=== PATIENT | female | born 1980 | race Caucasian/White ===

== ENCOUNTER 2023-03-16 10:19 | Outpatient (OUT) | payer MEDICAID, SELFPAY ==
[2023-03-16 11:03] LABS: Basophils Absolute Auto 0.1 10^3/uL (0.0-0.1); Basophils Percent Auto 0.7 % (0.2-2.0); Eosinophils Absolute Auto 0.4 10^3/uL (0.0-0.7); Eosinophils Percent Auto 2.9 % (0.9-7.0); Hematocrit 41.9 % (36.0-48.0); Hemoglobin 14.2 g/dL (12.0-16.0); Immature Granulocytes Abs Auto 0.05 10^3/uL (0.00-0.03); Immature Granulocytes Pct Auto 0.4 % (0.0-0.5); Lymphocytes Absolute Auto 2.4 10^3/uL (1.2-3.8); Lymphocytes Percent Auto 17.5 % (20.5-60.0); Mean Corpuscular HGB Conc 33.9 g/dL (29.9-35.2); Mean Corpuscular Hemoglobin 31.9 pg (26.7-34.0); Mean Corpuscular Volume 94.2 fL (81.0-99.0); Mean Platelet Volume 11.1 fL (9.5-13.5); Monocytes Absolute Auto 1.1 10^3/uL (0.3-0.8); Monocytes Percent Auto 7.9 % (1.7-12.0); Neutrophils Absolute Auto 9.6 10^3/uL (1.4-6.5); Neutrophils Percent Auto 70.6 % (43.0-75.0); Platelet Count 248 10^3/uL (150-450); Red Blood Count 4.45 10^6/uL (4.20-5.40); Red Cell Distribution Width 12.4 % (11.0-15.0); White Blood Count 13.6 10^3/uL (4.0-11.0)
[2023-03-16 11:26] LABS: Estimated Average Glucose 85 mg/dL; Glycohemoglobin A1C 4.6 % (4.5-6.2)
[2023-03-16 11:34] LABS: Alanine Aminotransferase 22 U/L (14-59); Albumin Level 3.5 g/dL (3.4-5.0); Alkaline Phosphatase 54 U/L (46-116); Anion Gap 12.2; Aspartate Amino Transferase 14 U/L (15-37); BUN Creatinine Ratio 14.8; Bilirubin Total 0.6 mg/dL (0.2-1.0); Calcium 8.8 mg/dL (8.5-10.1); Chloride 102 mmol/L (98-107); Chol HDL Ratio 2.4; Cholesterol 233 mg/dL (<=200); Estimated GFR (African America >60 (>=60); Estimated GFR (Non-African Ame >60 (>=60); Free T3 2.51 pg/mL (2.18-3.98); Globulin 3.5 g/dL; Glucose 83 mg/dL (74-106); HDL Cholesterol 97 mg/dL (40-60); Potassium 4.2 mmol/L (3.5-5.1); Sodium 138 mmol/L (136-145); Thyroid Stimulating Hormone 0.664 uIU/mL (0.358-3.740); Triglycerides 31 mg/dL (<=150); VLDL CHOLESTEROL 6.2 mg/dL
[2023-03-16 11:51] LABS: Free T4 1.04 ng/dL (0.76-1.46)
--- OUTSIDE RECORDS SUMMARY | 2023-04-26 13:45 | XMS_ITS | CCD ---
Author Name Unknown Address [address] [place] [address] Organization [facility] Care Team Providers Care Technology And Engineering Teacher Name Role Phone DR ASTRID LARSON Primary Care Unavailable ARTHUR PEREZ Attending Unavailable ARTHUR PEREZ Consulting Unavailable ARTHUR PEREZ Admitting Unavailable MARSHA, DR RESENDIZ Attending Unavailable MARSHA, DR RESENDIZ Consulting Unavailable DR ASTRID LARSON Primary Care Unavailable DR ASTRID LARSON Admitting Unavailable MARSHA, DR RESENDIZ Attending Unavailable MARSHA, DR RESENDIZ Consulting Unavailable DR ASTRID LARSON Primary Care Unavailable MARSHA, DR RESENDIZ Admitting Unavailable DR FRANCISCO JAVIER PATRICK Consulting Unavailable Problems Active Problems Problem Classification Problem Date Documented Date Episodic/Chronic Disorders of lipid metabolism (4 sources) Hyperlipidemia, unspecified; Translations: [HYPERLIPIDEMIA UNSPECIFIED] Onset: 01-06-2022 Chronic Immunizations and screening for infectious disease (2 sources) Encounter for screening for infections with a predominantly sexual mode of transmission; Translations: [Encounter for screening for human papillomavirus (HPV)] Onset: 06-17-2022 Episodic Nutritional deficiencies (1 source) Vitamin D deficiency, unspecified; Translations: [VITAMIN D DEFICIENCY UNSPECIFIED] Onset: 01-07-2022 Chronic Other female genital disorders (1 source) Other specified noninflammatory disorders of vagina; Translations: [OTH SPEC NONINFLAMMATORY D/O VAGINA] Onset: 06-17-2022 Episodic Other screening for suspected conditions (not mental disorders or infectious disease) (4 sources) Encounter for screening for malignant neoplasm of cervix; Translations: [ENC SCREENING MALIG NEOPLASM CERV] Onset: 06-16-2022 Episodic Past or Other Problems Problem Classification Problem Date Documented Da te Episodic/Chronic Diabetes mellitus without complication (1 source) Hyperglycemia, unspecified; Translations: [HYPERGLYCEMIA UNSPECIFIED] Onset: 01-07-2022 Episodic Spondylosis; intervertebral disc disorders; other back problems (4 sources) Radiculopathy, lumbar region; Translations: [RADICULOPATHY LUMBAR REGION] Onset: 10-28-2021 Episodic Results Test Name Value Interpretation Reference Range Facil ity PAP ACOG PANEL 2: 30 to 65on 06-23-2022 . . Normal [facility]ital Comment on above: Result Comment: Perf ormed at: WB Performed By: #### [id number] #### [facility] [address] [address] [address] Jaki Myers Age Gdln ACOG Testing 30-65 Normal [facility] Comment on above: Performed By: #### 4 [id number] #### [facility] [address] [address] [address] Jaki Myers DIAGNOSIS: Comment Normal [facility] ostal Comment on above: Result Comment: NEGA TIVE FOR INTRAEPITHELIAL LESION OR MALIGNANCY. Performed at: WB Performed By: #### 4 [id number] #### [facility] [address] [address] [address] Jaki Myers HPV Aptima Negative Normal Negative [facility] ostal Comment on above: Result Comment: This nucleic acid amplification test detects fourteen high-risk HPV types (16,18,31,33,35,39,45,51,52,56,58,59,66,68) without differentiation. Performed at: =G Performed By: #### 4 [id number] #### [facility] [address] [address] [address] Jaki Myers HPV Genotype Reflex Comment Normal [facility] Comment on above: Result Comment: Crit eria not met, HPV Genotype not performed. Performed at: WB Performed By: #### 4 [id number] #### [facility] [address] [address] [address] Jaki Myers Methodology: Comment Normal [facility] Comment on above: Result Comment: This liquid based ThinPrep(R) pap test was screened with the use of an image guided system. Performed at: WB Performed By: #### 4 [id number] #### [facility] [address] [address] [address] Jaki Myers Note: Comment Normal [facility] Comment on above: Result Comment: The Pap smear is a screening test designed to aid in the detection of premalignant and malignant conditions of the uterine cervix. It is not a diagnostic procedure and should not be used as the sole means of detecting cervical cancer. Both false-positive and false-negative reports do occur. . Performed at: WB Performed By: #### 4 [id number] #### [facility] [address] [place] [address] Dr. Jaki Myers Performed by: Comment Normal [facility] [place] Comment on above: Result Comment: Kalee Pires, Open H[employer] Furnace Operator Helper (ASCP) Performed at: WB Performed By: #### 4 [id number] #### [facility] [address] [place] [address] Dr. Jaki Myers Specimen adequacy: Comment Normal [facility] Comment on above: Result Comment: Sati sfactory for evaluation. Endocervical and/or squamous metaplastic cells (endocervical component) are present. Performed at: WB Performed By: #### 4 [id number] #### [facility] [address] [place] [address] Dr. Jaki Myers CHLAMYDIA/GONOCOCCUS CASE (SW AB/URINE/PAPon 06-19-2022 Chlamydia trachomatis, CASE Negative Normal Negative [facility] Comment on above: Performed By: #### C T/NGNA #### [facility] [address] [place] [address] Dr. Jaki Myers Neisseria gonorrhoeae, CASE Negative Normal Negative [facility] Comment on above: Performed By: #### C T/NGNA #### [facility] [address] [place] [address] Dr. Jaki Myers VAGINITIS/VAGINOSIS DNA PROB Suhas 06-18-2022 Raisa species Negative Normal Negative [facility] Comment on above: Performed By: #### V AGINT #### [facility] [address] [place] [address] Dr. Jaki Myers Gardnerella vaginalis Positive Abnormal Negative [facility] Comment on above: Performed By: #### V AGINT #### [facility] [address] [place] [address] Dr. Jaki Myers Trichomonas vaginalis Negative Normal Negative [facility] Comment on above: Performed By: #### V AGINT #### [facility] [address] [address] [address] Jaki Myers T4 LABCORPon 01-07-2022 T4 [Mass/Vol] 7.6 ug/dL Normal 4.5-12.0 [facility] [place] Comment on above: Performed By: #### T 4LC #### [facility] [address] [address] [address] Jaki Myers VIT D 25-[place] LABCORPon 2021 Vitamin D, 25-Hydroxy 20.0 ng/mL Critically low 30.0-100.0 [facility] Comment on above: Result Comment: Martina min D deficiency has been defined by the [place] of Medicine and an Endocrine Society practice guideline as a level of serum 25-OH vitamin D less than 20 ng/mL (1,2). The Endocrine Society went on to further define vitamin D insufficiency as a level between 21 and 29 ng/mL (2). 1. IOM ([place] of Medicine). 2010. Dietary reference intakes for calcium and D. [place]: The National Academies Press. 2. Noreen MF, Bobby NC, Nael ESPINOZA, et al. Evaluation, treatment, and prevention of vitamin D deficiency: an Endocrine Society clinical practice guideline. JCEM. 2010; 96(7):1911-30. Performed By: #### V ITADLC #### [facility] [address] [address] [address] Jaki Myers CBC AUTO DIFFon 01-06-2022 BASO # 0.1 103/ul Normal 0.0-0.1 [facility] Comment on above: Performed By: #### C BC ####[facility] [address] [id number]. Jaki Myers Basophils/100 WBC (Bld) 0.9 % Normal 0.2-2.0 [facility] [place] Comment on above: Performed By: #### C BC ####[facility] [address] [id number]. Jaki Myers EO # 0.4 103/ul Normal 0.0-0.7 [facility] Comment on above: Performed By: #### C BC ####[facility] [address] [address]Dr. Jaki Myers Eosinophils/100 WBC (Bld) 4.3 % Normal 0.9-7.0 [facility] Comment on above: Performed By: #### C BC ####[facility] [address] [place], [place] [address]Dr. Jaki Myers Erythrocyte distribution wid th (RBC) [Ratio] 12.9 % Normal 11.0-15.0 [facility] Comment on above: Performed By: #### C BC ####[facility] [address] [place], [place] [address]Dr. Jaki Myers Hematocrit (Bld) [Volume fraction] 42.4 % Normal 3 6.0-48.0 [facility] Comment on above: Performed By: #### C BC ####[facility] [address] [place], [place] [address]Dr. Jaki Myers Hemoglobin (Bld) [Mass/Vol] 14.1 g/dL Normal 12.0-16. 0 [facility] Comment on above: Performed By: #### C BC ####[facility] [address] [place], [place] [address]Dr. Jaki Myers IG # 0.03 10e3/ul Normal 0.00-0.03 [facility] Comment on above: Performed By: #### C BC ####[facility] [address] [place], [place] [address]Dr. Jaki Myers IG % 0.4 % Normal 0.0-0.5 [facility] Comment on above: Performed By: #### C BC ####[facility] [address] [place], [place] [address]Dr. Jaki Myers LYMPH # 2.4 103/ul Normal 1.2-3.8 [facility] Comment on above: Performed By: #### C BC ####[facility] [address] [id number]. Jaki Louis Lymphocytes/100 WBC (Bld) 28.8 % Normal 20.5-60.0 [facility] Comment on above: Performed By: #### C BC ####[facility] [address] [id number]. Jaki Louis MANUAL DIFF REQ NO Normal [facility] Comment on above: Performed By: #### C BC ####[facility] [address] [address]Dr. Lizbethiker Myers MCH (RBC) [Entitic mass] 31.9 pg Normal 26.7-34.0 [facility] Comment on above: Performed By: #### C BC ####[facility] [address] [address]Dr. Jaki Louis MCHC (RBC) [Mass/Vol] 33.3 g/dL Normal 29.9-35.2 [facility] Comment on above: Performed By: #### C BC ####[facility] [address] [address]Dr. Lizbethiker Myers MCV (RBC) [Entitic vol] 95.9 fL Normal 81.0-99.0 [facility] [place] Comment on above: Performed By: #### C BC ####[facility] [address] [id number]. Jaki Myers MONO # 0.9 103/ul Critically high 0.3-0.8 [facility] Comment on above: Performed By: #### C BC ####[facility] [address] [id number]. Jaki Myers Monocytes/100 WBC (Bld) 10.4 % Normal 1.7-12.0 [facility] [place] Comment on above: Performed By: #### C BC ####[facility] [address] [address]Dr. Jaki Myesr NEUT # 4.7 103/ul Normal 1.4-6.5 [facility] ostal Comment on above: Performed By: #### C BC ####[facility] [address] [id number]. Jaki Myers Neutrophils/100 WBC (Bld) 55.2 % Normal 43.0-75.0 [facility] Comment on above: Performed By: #### C BC ####[facility] [address] [id number]. Jaki Myers Platelet mean volume (Bld) [ Entitic vol] 10.7 fL Normal 9.5-13.5 The [facility] pital Comment on above: Performed By: #### C BC ####[facility] [address] [id number]. Jaki Myers PLT 257 103/ul Normal 150-450 [facility] Comment on above: Performed By: #### C BC ####[facility] [address] [id number]. Jaki Myers RBC 4.42 106/ul Normal 4.20-5.40 [facility] Comment on above: Performed By: #### C BC ####[facility] [address] [id number]. Jaki Myers WBC 8.5 103/ul Normal 4.0-11.[address] [facility] Comment on above: Performed By: #### C BC ####[facility] [address] [id number]. Jaki Myers FREE T3on 01-06-2022 FREE T3 2.22 pg/mlL Normal 2.18-3.98 [facility] Comment on above: Performed By: #### F T3, TSH, CMP, LIPID #### [facility] [address] [place], [place] [address] Dr. Jaki Myers GLYCOHEMOGLOBIN A1Con 2021 ADA RECOMMENDATION SEE BELOW Normal The [facility] Comment on above: Result Comment: ADA RECOMMENDED LIMIT 4.0 - 6.0 ADA THERAPEUTIC TARGET < 7.0 ACTION SUGGESTED > 7.0 Performed By: #### A 1C ####[facility] [address] [address]DrSara Myers Glucose [Mass/Vol] 85 mg/dL Normal [facility] Comment on above: Performed By: #### A 1C ####[facility] [address] [place], [place] [address]Dr. Jaki Myers HbA1c (Bld) [Mass fraction] 4.6 % Normal 4.5-6.2 [facility] Comment on above: Performed By: #### A 1C ####[facility] [address] [place], [place] [address]Dr. Jaki Myers LIPID PROFILEon 01-06-2022 CHOL-HDL RATIO NORM SEE BELOW Normal [facility] Comment on above: Result Comment: 3.3 - 4.4 LOW RISK 4.4 - 7.1 AVERAGE RISK 7.1 - 11.0 MODERATE RISK >11.0 HIGH RISK Performed By: #### F T3, TSH, CMP, LIPID #### [facility] [address] [place], [place] [address] Dr. Jaki Myers Cholesterol [Mass/Vol] 242 mg/dL Critically high <=200 [facility] Comment on above: Performed By: #### F T3, TSH, CMP, LIPID #### [facility] [address] [place], [place] [address] Dr. Jaki Myers Cholesterol in HDL [Mass/Vol] 89 mg/dL Critically high 4 0-60 [facility] Comment on above: Performed By: #### F T3, TSH, CMP, LIPID #### [facility] [address] [place], [place] [address] Dr. Jaki Myers Cholesterol in LDL [Mass/Vol] 145.2 mg/dL Normal [facility] Comment on above: Performed By: #### F T3, TSH, CMP, LIPID #### [facility] [address] [place], [place] [address] Dr. Jaki Myers Cholesterol.total/Cholestero l in HDL [Mass ratio] 2.7 {ratio} Normal [facility] Comment on above: Performed By: #### F T3, TSH, CMP, LIPID #### [facility] [address] [place], [place] [address] Dr. Jaki Myers HDL NORMAL > or = 60 mg/dl - LO W CARDIOVASCULAR RISK <40 mg/dl - HIGH CARDIOVASCULAR RISK Normal [facility] Comment on above: Performed By: #### F T3, TSH, CMP, LIPID #### [facility] [address] [address] [address] Jaki Myers LDL CALC NORMAL SEE BELOW Normal [facility] Comment on above: Result Comment: <100 mg/dl OPTIMAL 100 - 129 mg/dl NEAR OR ABOVE OPTIMAL 130 - 159 mg/dl BORDERLINE HIGH 160 - 189 mg/dl HIGH >190 mg/dl VERY HIGH Performed By: #### F T3, TSH, CMP, LIPID #### [facility] [address] [address] [address] Jaki Myers Triglyceride [Mass/Vol] 39 mg/dL Normal <=150 [facility] Comment on above: Performed By: #### F T3, TSH, CMP, LIPID #### [facility] [address] [address] [address] Jaki Myers VLDL CALC 7.8 mg/dL Normal [facility] Comment on above: Performed By: #### F T3, TSH, CMP, LIPID #### [facility] [address] [place] [address] Dr. Jaki Myers PROF 14(COMP METB)on 022 Albumin [Mass/Vol] 3.6 g/dL Normal 3.4-5.0 [facility] Comment on above: Performed By: #### F T3, TSH, CMP, LIPID #### [facility] [address] [address] [address] Jaki Myers Albumin/Globulin [Mass ratio] 1.1 {ratio} Normal [facility] Comment on above: Performed By: #### F T3, TSH, CMP, LIPID #### [facility] [address] [address] [address] Jaki Myers ALP [Catalytic activity/Vol] 51 U/L Normal 46-116 [facility] Comment on above: Performed By: #### F T3, TSH, CMP, LIPID #### [facility] [address] [address] [address] Jaki Myers ALT [Catalytic activity/Vol] 24 U/L Normal 14-59 [facility] Comment on above: Performed By: #### F T3, TSH, CMP, LIPID #### [facility] [address] [place] [address] Dr. Jaki Myers Anion gap [Moles/Vol] 12.2 mmol/L Normal Th e [facility] Comment on above: Performed By: #### F T3, TSH, CMP, LIPID #### [facility] [address] [place] [address] Dr. Jaki Myers AST [Catalytic activity/Vol] 19 U/L Normal 15-37 [facility] Comment on above: Performed By: #### F T3, TSH, CMP, LIPID #### [facility] [address] [place] [address] Dr. Jaki Myers Bilirubin [Mass/Vol] 0.6 mg/dL Normal 0.2-1.0 [facility] Comment on above: Performed By: #### F T3, TSH, CMP, LIPID #### [facility] [address] [place] [address] Dr. Jaki Myers Calcium [Mass/Vol] 8.8 mg/dL Normal 8.5-10.1 [facility] Comment on above: Performed By: #### F T3, TSH, CMP, LIPID #### [facility] [address] [place] [address] Dr. Jaki Myers Chloride [Moles/Vol] 103 mmol/L Normal 98-107 [facility] Comment on above: Performed By: #### F T3, TSH, CMP, LIPID #### [facility] [address] [place] [address] Dr. Jaki Myers CO2 [Moles/Vol] 27.7 mmol/L Normal 21.0-32.0 [facility] Comment on above: Performed By: #### F T3, TSH, CMP, LIPID #### [facility] [address] [place] [address] Dr. Jaki Myers Creatinine [Mass/Vol] 0.62 mg/dL Normal 0.55-1.02 [facility] Comment on above: Performed By: #### F T3, TSH, CMP, LIPID #### [facility] [address] [address] [address] Jaki Myers EGFR-AF PALESTINIAN >60 Normal >=60 [facility] Comment on above: Performed By: #### F T3, TSH, CMP, LIPID #### [facility] [address] [address] [address] Jaki Myers EGFR-NON AF PALESTINIAN >60 Normal >=60 [facility] Comment on above: Performed By: #### F T3, TSH, CMP, LIPID #### [facility] [address] [address] [address] Jaki Myers Globulin (S) [Mass/Vol] 3.3 g/dL Normal [facility] Comment on above: Performed By: #### F T3, TSH, CMP, LIPID #### [facility] [address] [address] [address] Jaki Myers Glucose [Mass/Vol] 87 mg/dL Normal 74-106 [facility] Comment on above: Performed By: #### F T3, TSH, CMP, LIPID #### [facility] [address] [address] [address] Jaki Myers Potassium [Moles/Vol] 3.9 mmol/L Normal 3.5-5.1 [facility] Comment on above: Performed By: #### F T3, TSH, CMP, LIPID #### [facility] [address] [address] [address] Jaki Myers Protein [Mass/Vol] 6.9 g/dL Normal 6.4-8.2 [facility] Comment on above: Performed By: #### F T3, TSH, CMP, LIPID #### [facility] [address] [address] [address] Jaki Myers Sodium [Moles/Vol] 139 mmol/L Normal 136-145 [facility] Comment on above: Performed By: #### F T3, TSH, CMP, LIPID #### [facility] [address] [address] [address] Jaki Myers Urea nitrogen [Mass/Vol] 11.0 mg/dL Normal 7.0-18.0 [facility] Comment on above: Performed By: #### F T3, TSH, CMP, LIPID #### [facility] [address] [address] [address] Jaki Myers Urea nitrogen/Creatinine [Mass ratio] 17.7 mg/mg Normal [facility] Comment on above: Performed By: #### F T3, TSH, CMP, LIPID #### [facility] [id number] Jaki Myers TSHon 01-06-2022 TSH 0.338 uIU/mL Critically low 0.358-3.740 [facility] Comment on above: Performed By: #### F T3, TSH, CMP, LIPID #### [facility] [id number] Jaki Myers XR LSPINE MIN 4 VIEWSon 10-08 XR LSPINE MIN 4 VIEWS EXAMINATION: XR LS PINE MIN 4 VIEWS HISTORY: Lumbar radiculopathy ; acute left lumbar pain; no known injury COMPARISON: No relevant comparison available. FINDINGS: BONES: No significant spondylosis, scoliosis, fracture, or visible bony lesion. DISC SPACES: No significant disc height narrowing, subluxation, or endplate abnormality. PARASPINOUS: Negative. No paraspinous abnormality is seen. OTHER: Negative. IMPRESSION: 1. No appreciable acute abnormality. 2. No significant degenerative changes. Electronically authenticated by: FRANCISCO JAVIER PATRICK Date: 2021-10-29 07:49 Normal The [facility] Encounters Encounter Date Encounter Type Care Provider Facility Start: 06-16-2022 End: 06-16-[address] ASTRID LARSON Facility:[facility] Start: 01-06-2022 End: 01-07-[address] ASTRID LARSON Facility:[facility] Start: 10-28-2021 End: 10-29-[address] ASTRID LARSON Facility:[facility] Payers Date Payer Category Payer Medicaid [id number] 1980 Unknown [id number] [id number] 1980 Unknown [id number] [id number] [id number] 1980 Unknown [id number] [id number] [id number] 1957 Unknown [id number] Summary Purpose Family History No Family History Records Found Advance Directives No Advanced Directives Records Found Additional Source Comments INFORMATION SOURCE (unrecogn ized section and content) DATE CREATED AUTHOR 06/23/2022 [facility] FOR RECORDS PERTAINING TO PATIENTS WHO ARE OR HAVE BEEN ENROLLED IN A CHEMICAL DEPENDENCY/SUBSTANCEABUSE PROGRAM, SOME INFORMATION MAY BE OMITTED. This clinical summary was aggregated from multiple sources. Caution should be exercised in using it in the provision of clinical care. This summary normalizes information from multiple sources, and as a consequence, information in this document may materially change the coding, format and clinical context of patient data. In addition, data may be omitted in some cases. CLINICAL DECISIONS SHOULD BE BASED ON THE PRIMARY CLINICAL RECORDS. [facility]. provides no warranty or guarantee of the accuracy or completeness of information in this document.
== END 2023-03-16 10:20 | disposition home or self-care (01) ==
LOC: LAB 10:26
PROVIDERS: PCP Family Medicine; Visit Provider Family Medicine
DX: Z00.00 Encounter for general adult medical examination without abnormal findings (principal); E78.00 Pure hypercholesterolemia, unspecified; E03.9 Hypothyroidism, unspecified
CPT/HCPCS: 36415; 80053; 80061; 83036; 84439; 84443; 84481; 85025

== ENCOUNTER 2025-01-23 11:35 | Outpatient (OUT) | payer MEDICAID, SELFPAY ==
--- OUTSIDE RECORDS SUMMARY | 2025-01-23 11:41 | XMS_ITS | CCD ---
Author Organization [facility] Care Team Providers Care Ore Puncher Name Role Phone DR ASTRID LARSON Primary Care Unavailable ARTHUR PEREZ Attending Unavailable ARTHUR PEREZ Consulting Unavailable ARTHUR PEREZ Admitting Unavailable MARSHA, DR RESENDIZ Attending Unavailable DR ASTRID LARSON Consulting Unavailable DR ASTRID LARSON Primary Care Unavailable DR ASTRID LARSON Admitting Unavailable DR ASTRID LARSON Attending Unavailable DR ASTRID LARSON Consulting Unavailable DR ASTRID LARSON Primary Care Unavailable DR ASTRID LARSON Admitting Unavailable DR FRANCISCO JAVIER PATRICK Consulting [...] Results Test Name Value Interpretation Reference Range Facility PAP ACOG PANEL 2: 30 to 65on 06-23-2022 . . Normal [facility] [place] Comment on above: Result Comment: Perf ormed at: WB Performed By: #### [id number] #### [facility] [address] [address] [address] Jaki Myers Age Gdln ACOG Testing 30-65 Normal [facility] [place] Comment on above: Performed By: #### 4 [id number] #### [facility] [address] [address] [address] Jaki Myers DIAGNOSIS: Comment Normal [facility] [place] Comment on above: Result Comment: NEGA TIVE FOR INTRAEPITHELIAL LESION OR MALIGNANCY. Performed at: WB Performed By: #### [id number] #### [facility] [address] [address] [address] Jaki Myers HPV Aptima Negative Normal Negative [facility] [place] Comment on above: Result Comment: This nucleic acid amplification test detects fourteen high-risk HPV types (16,18,31,33,35,39,45,51,52,56,58,59,66,68) without differentiation. Performed at: =G Performed By: #### 4 [id number] #### [facility] [address] [address] [address] Jaki Myers HPV Genotype Reflex Comment Normal [facility] Comment on above: Result Comment: Crit eria not met, HPV Genotype not performed. Performed at: WB Performed By: #### [id number] #### [facility] [address] [address] [address] Jaki Myers Methodology: Comment Normal [facility] [place] Comment on above: Result Comment: This liquid based ThinPrep(R) pap test was screened with the use of an image guided system. Performed at: WB Performed By: #### 4 [id number] #### [facility] [address] [address] [address] Jaki Myers Note: Comment Normal [facility] [place] Comment on above: Result Comment: The Pap smear is a screening test designed to aid in the detection of premalignant and malignant conditions of the uterine cervix. It is not a diagnostic procedure and should not be used as the sole means of detecting cervical cancer. Both false-positive and false-negative reports do occur. . Performed at: WB Performed By: #### [id number] #### [facility] [address] [place] [address] Dr. Jaki Myers Performed by: Comment Normal [facility] Comment on above: Result Comment: Kalee Pires, Vocational Psychologist (ASCP) Performed at: WB Performed By: #### 4 [id number] #### [facility] [address] [place] [address] Dr. Jaki Myers Specimen adequacy: Comment Normal [facility] Comment on above: Result Comment: Sati sfactory for evaluation. Endocervical and/or squamous metaplastic cells (endocervical component) are present. Performed at: WB Performed By: #### 4 [id number] #### [facility] [address] [place] [address] Dr. Jaki Myers CHLAMYDIA/GONOCOCCUS CASE (SW AB/URINE/PAPon 06-19-2022 Chlamydia trachomatis, CASE Negative Normal Negative [facility] [place] Comment on above: Performed By: #### C T/NGNA #### [facility] [address] [place] [address] Dr. Jaki Myers Neisseria gonorrhoeae, CASE Negative Normal Negative [facility] [place] Comment on above: Performed By: #### C T/NGNA #### [facility] [address] [place] [address] Dr. Jaki Myers VAGINITIS/VAGINOSIS DNA PROB Suhas 06-18-2022 Raisa species Negative Normal Negative [facility] Comment on above: Performed By: #### V AGINT #### [facility] [address] [place] [address] Dr. Jaki Myers Gardnerella vaginalis Positive Abnormal Negative [facility] [place] Comment on above: Performed By: #### V AGINT #### [facility] [address] [place] [address] Dr. Jaki Myers Trichomonas vaginalis Negative Normal Negative [facility] [place] Comment on above: Performed By: #### V AGINT #### [facility] [address] [address] [address] Jaki Myers T4 [facility]OR[facility]on 01-07-2022 T4 [Mass/Vol] 7.6 ug/dL Normal 4.5-12.0 [facility] Comment on above: Performed By: #### T 4LC #### [facility] [address] [address] [address] Jaki Myers VIT D 25-OH [facility]on 2021 Vitamin D, 25-Hydroxy 20.0 ng/mL Critically low 30.0-100.0 [facility] [place] Comment on above: Result Comment: Martina min D deficiency has been defined by the [place] of [employer] and an Endocrine Society practice guideline as a level of serum 25-OH vitamin D less than 20 ng/mL (1,2). The Endocrine Society went on to further define vitamin D insufficiency as a level between 21 and 29 ng/mL (2). 1. IOM ([place] [employer]). 2010. Dietary reference intakes for calcium and D. [place]: The National Academies Press. 2. Noreen MF, Bobby NC, Nael ESPINOZA, et al. Evaluation, treatment, and prevention of vitamin D deficiency: an Endocrine Society clinical practice guideline. JCEM. 2010; 96(7):1911-30. Performed By: #### V ITADLC #### [facility] [address] [address] [address] Jaki Myers CBC AUTO DIFFon 01-06-2022 BASO # 0.1 103/ul Normal 0.0-0.1 [facility] [place] Comment on above: Performed By: #### C BC ####[facility] [address] [id number] Myers Basophils/100 WBC (Bld) 0.9 % Normal 0.2-2.0 [facility] Comment on above: Performed By: #### C BC ####[facility] [address] [id number] Myers EO # 0.4 103/ul Normal 0.0-0.7 [facility] Comment on above: Performed By: #### C BC ####[facility] [address] [address]Dr. Jaki Myers Eosinophils/100 WBC (Bld) 4.3 % Normal 0.9-7.0 [facility] [place] Comment on above: Performed By: #### C BC ####[facility] [address] [address]Dr. Jaki Myers Erythrocyte distribution width (RBC) [Ratio] 12.9 % Normal 11.0-15.0 [facility] Comment on above: Performed By: #### C BC ####[facility] [address] [place], [place] [address]Dr. Jaki Myers Hematocrit (Bld) [Volume fraction] 42.4 % Normal 36.0-48.0 [facility] Comment on above: Performed By: #### C BC ####[facility] [address] [place], [place] [address]Dr. Jaki Myers Hemoglobin (Bld) [Mass/Vol] 14.1 g/dL Normal 12.0-16.0 [facility] Comment on above: Performed By: #### C BC ####[facility] [address] [place], [place] [address]Dr. Jaki Myers IG # 0.03 10e3/ul Normal 0.00-0.03 [facility] Comment on above: Performed By: #### C BC ####[facility] [address] [place], [place] [address]Dr. Jaki Myers IG % 0.4 % Normal 0.0-0.5 [facility] Comment on above: Performed By: #### C BC ####[facility] [address] [place], [place] [address]Dr. Jaki Myers LYMPH # 2.4 103/ul Normal 1.2-3.8 [facility] Comment on above: Performed By: #### C BC ####[facility] [address] [place], [place] [address]Dr. Jaki Myers Lymphocytes/100 WBC (Bld) 28.8 % Normal 20.5-60.0 [facility] Comment on above: Performed By: #### C BC ####[facility] [address] [address]Dr. Jaki Myers MANUAL DIFF REQ NO Normal [facility] Comment on above: Performed By: #### C BC ####[facility] [address] [id number]. Lizbethiker Myers MCH (RBC) [Entitic mass] 31.9 pg Normal 26.7-34.0 [facility] Comment on above: Performed By: #### C BC ####[facility] [address] [place], [place] [address]Dr. Jaki Louis MCHC (RBC) [Mass/Vol] 33.3 g/dL Normal 29.9-35.2 [facility] Comment on above: Performed By: #### C BC ####[facility] [address] [place], [place] [address]Dr. Jaki Myers MCV (RBC) [Entitic vol] 95.9 fL Normal 81.0-99.0 [facility] [place] Comment on above: Performed By: #### C BC ####[facility] [address] [place], [place] [address]Dr. Jaki Louis MONO # 0.9 103/ul Critically high 0.3-0.8 [facility] Comment on above: Performed By: #### C BC ####[facility] [address] [place], [place] [address]Dr. Jaki Myers Monocytes/100 WBC (Bld) 10.4 % Normal 1.7-12.0 [facility] Comment on above: Performed By: #### C BC ####[facility] [address] [place], [place] [address]Dr. Jaki Myers NEUT # 4.7 103/ul Normal 1.4-6.5 [facility] Comment on above: Performed By: #### C BC ####[facility] [address] [place], [place] [address]Dr. Jaki Myers Neutrophils/100 WBC (Bld) 55.2 % Normal 43.0-75.0 [facility] Comment on above: Performed By: #### C BC ####[facility] [address] [id number]. Jaki Myers Platelet mean volume (Bld) [Entitic vol] 10.7 fL Normal 9.5-13.5 [facility] [place] Comment on above: Performed By: #### C BC ####[facility] [address] [address]Dr. Jaki Myers PLT 257 103/ul Normal 150-450 [facility] Comment on above: Performed By: #### C BC ####[facility] [address] [address]Dr. Jaki Myers RBC 4.42 106/ul Normal 4.20-5.40 [facility] [place] Comment on above: Performed By: #### C BC ####[facility] [address] [address]Dr. Jaki Myers WBC 8.5 103/ul Normal 4.0-11.0 [facility] [place] Comment on above: Performed By: #### C BC ####[facility] [address] [id number]. Jaki Myers FREE T3on 01-06-2022 FREE T3 2.22 pg/mlL Normal 2.18-3.98 [facility] [place] Comment on above: Performed By: #### F T3, TSH, CMP, LIPID #### [facility] [address] [place], [place] [address] Dr. Jaki Myers GLYCOHEMOGLOBIN A1Con 2021 ADA RECOMMENDATION SEE BELOW Normal [facility] Comment on above: Result Comment: ADA RECOMMENDED LIMIT 4.0 - 6.0 ADA THERAPEUTIC TARGET < 7.0 ACTION SUGGESTED > 7.0 Performed By: #### A 1C ####[facility] [address] [id number] Myers Glucose [Mass/Vol] 85 mg/dL Normal [facility] Comment on above: Performed By: #### A 1C ####[facility] [address] [id number] Myers HbA1c (Bld) [Mass fraction] 4.6 % Normal 4.5-6.2 [facility] [place] Comment on above: Performed By: #### A 1C ####[facility] [address] [place], [place] [address]Dr. Jaki Myers LIPID PROFILEon 01-06-2022 CHOL-HDL RATIO NORM SEE BELOW Normal [facility] Comment on above: Result Comment: 3.3 - 4.4 LOW RISK 4.4 - 7.1 AVERAGE RISK 7.1 - 11.0 MODERATE RISK >11.0 HIGH RISK Performed By: #### F T3, TSH, CMP, LIPID #### [facility] [address] [place], [place] [address] Dr. Jaki Myers Cholesterol [Mass/Vol] 242 mg/dL Critically high <=200 [facility] [place] Comment on above: Performed By: #### F T3, TSH, CMP, LIPID #### [facility] [address] [address] [address] Jaki Myers Cholesterol in HDL [Mass/Vol] 89 mg/dL Critically high 40-60 [facility] [place] Comment on above: Performed By: #### F T3, TSH, CMP, LIPID #### [facility] [address] [address] [address] Jaki Myers Cholesterol in LDL [Mass/Vol] 145.2 mg/dL Normal [facility] [place] Comment on above: Performed By: #### F T3, TSH, CMP, LIPID #### [facility] [address] [place], [place] [address] Dr. Jaki Myers Cholesterol.total/Cho lesterol in HDL [Mass ratio] 2.7 {ratio} Normal [facility] [place] Comment on above: Performed By: #### F T3, TSH, CMP, LIPID #### [facility] [address] [place], [place] [address] Dr. Jaki Myers HDL NORMAL > or = 60 mg/dl - LO W CARDIOVASCULAR RISK <40 mg/dl - HIGH CARDIOVASCULAR RISK Normal [facility] [place] Comment on above: Performed By: #### F T3, TSH, CMP, LIPID #### [facility] [id number] Jaki Myers LDL CALC NORMAL SEE BELOW Normal [facility] Comment on above: Result Comment: <100 mg/dl OPTIMAL 100 - 129 mg/dl NEAR OR ABOVE OPTIMAL 130 - 159 mg/dl BORDERLINE HIGH 160 - 189 mg/dl HIGH >190 mg/dl VERY HIGH Performed By: #### F T3, TSH, CMP, LIPID #### [facility] [address] [address] [address] Jaki Myers Triglyceride [Mass/Vol] 39 mg/dL Normal <=150 [facility] [place] Comment on above: Performed By: #### F T3, TSH, CMP, LIPID #### [facility] [address] [address] [address] Jaki Myers VLDL CALC 7.8 mg/dL Normal [facility] [place] Comment on above: Performed By: #### F T3, TSH, CMP, LIPID #### [facility] [address] [address] [address] Jaki Myers PROF 14(COMP METB)on 022 Albumin [Mass/Vol] 3.6 g/dL Normal 3.4-5.0 [facility] Comment on above: Performed By: #### F T3, TSH, CMP, LIPID #### [facility] [address] [address] [address] Jaki Myers Albumin/Globulin [Mass ratio] 1.1 {ratio} Normal [facility] [place] Comment on above: Performed By: #### F T3, TSH, CMP, LIPID #### [facility] [address] [address] [address] Jaki Myers ALP [Catalytic activity/Vol] 51 U/L Normal 46-116 [facility] [place] Comment on above: Performed By: #### F T3, TSH, CMP, LIPID #### [facility] [address] [address] [address] Jaki Myers ALT [Catalytic activity/Vol] 24 U/L Normal 14-59 [facility] [place] Comment on above: Performed By: #### F T3, TSH, CMP, LIPID #### [facility] [address] [address] [address] Jaki Myers Anion gap [Moles/Vol] 12.2 mmol/L Normal [facility] Comment on above: Performed By: #### F T3, TSH, CMP, LIPID #### [facility] [address] [address] [address] Jaki Myers AST [Catalytic activity/Vol] 19 U/L Normal 15-37 [facility] [place] Comment on above: Performed By: #### F T3, TSH, CMP, LIPID #### [facility] [address] [address] [address] Jaki Myers Bilirubin [Mass/Vol] 0.6 mg/dL Normal 0.2-1.0 [facility] [place] Comment on above: Performed By: #### F T3, TSH, CMP, LIPID #### [facility] [address] [place] [address] Dr. Jaki Myers Calcium [Mass/Vol] 8.8 mg/dL Normal 8.5-10.1 [facility] Comment on above: Performed By: #### F T3, TSH, CMP, LIPID #### [facility] [address] [place] [address] Dr. Jaki Myers Chloride [Moles/Vol] 103 mmol/L Normal 98-107 [facility] Comment on above: Performed By: #### F T3, TSH, CMP, LIPID #### [facility] [address] [place] [address] Dr. Jaki Myers CO2 [Moles/Vol] 27.7 mmol/L Normal 21.0-32.0 [facility] Comment on above: Performed By: #### F T3, TSH, CMP, LIPID #### [facility] [address] [place] [address] Dr. Jaki Myers Creatinine [Mass/Vol] 0.62 mg/dL Normal 0.55-1.02 [facility] [place] Comment on above: Performed By: #### F T3, TSH, CMP, LIPID #### [facility] [address] [place] [address] Dr. Jaki Myers EGFR-AF INDONESIAN >60 Normal >=60 [facility] Comment on above: Performed By: #### F T3, TSH, CMP, LIPID #### [facility] [address] [address] [address] Jaki Myers EGFR-NON AF INDONESIAN >60 Normal >=60 [facility] Comment on above: Performed By: #### F T3, TSH, CMP, LIPID #### [facility] [address] [address] [address] Jaki Myers Globulin (S) [Mass/Vol] 3.3 g/dL Normal [facility] [place] Comment on above: Performed By: #### F T3, TSH, CMP, LIPID #### [facility] [address] [address] [address] Jaki Myers Glucose [Mass/Vol] 87 mg/dL Normal 74-106 [facility] Comment on above: Performed By: #### F T3, TSH, CMP, LIPID #### [facility] [address] [address] [address] Jaki Myers Potassium [Moles/Vol] 3.9 mmol/L Normal 3.5-5.1 [facility] Comment on above: Performed By: #### F T3, TSH, CMP, LIPID #### [facility] [address] [address] [address] Jaki Myers Protein [Mass/Vol] 6.9 g/dL Normal 6.4-8.2 [facility] Comment on above: Performed By: #### F T3, TSH, CMP, LIPID #### [facility] [address] [address] [address] Jaki Myers Sodium [Moles/Vol] 139 mmol/L Normal 136-145 [facility] Comment on above: Performed By: #### F T3, TSH, CMP, LIPID #### [facility] [address] [address] [address] Jaki Myers Urea nitrogen [Mass/Vol] 11.0 mg/dL Normal 7.0-18.0 [facility] Comment on above: Performed By: #### F T3, TSH, CMP, LIPID #### [facility] [address] [address] [address] Jaki Myers Urea nitrogen/Creatinine [Mass ratio] 17.7 mg/mg Normal [facility] [place] Comment on above: Performed By: #### F T3, TSH, CMP, LIPID #### [facility] [address] [place], [place] [address] Dr. Jaki Myers TSHon 01-06-2022 TSH 0.338 uIU/mL Critically low 0.358-3.740 [facility] Comment on above: Performed By: #### F T3, TSH, CMP, LIPID #### [facility] [address] [place], [place] [address] Dr. Jaki Myers XR LSPINE MIN 4 VIEWSon 10-08 XR LSPINE MIN 4 VIEWS EXAMINATION: XR LSPINE MIN 4 VIEWS HISTORY: Lumbar radiculopathy ; [...] JAVIER PATRICK Date: 2021-10-29 07:49 Normal [facility] Encounters Encounter Date Encounter Type Care Provider Facility Start: 06-16-2022 End: 06-16-[address] ASTRID LARSON Facility:[facility] Start: 01-06-2022 End: 01-07-[address] ASTRID LARSON Facility:[facility] Start: 10-28-2021 End: 10-29-[address] ASTRID LARSON Facility:[facility] Payers Date Payer Category Payer Medicaid [id number] 1980 Unknown [id number] 1980 Unknown [id number] [id number] 1980 Unknown [id number] 1957 Unknown [id number] Summary Purpose Family History No Family History Records Found Advance Directives No Advanced Directives Records Found Additional Source Comments INFORMATION SOURCE (unrecogn ized section and content) DATE CREATED AUTHOR 06/23/2022 The [facility] FOR RECORDS PERTAINING TO PATIENTS WHO ARE [...] BE BASED ON THE PRIMARY CLINICAL RECORDS. [facility] [employer] [facility]. provides no warranty or guarantee of the accuracy or completeness of information in this document.
[2025-01-23 12:17] LABS: Hematocrit 43.6 % (36.0-48.0); Hemoglobin 15.1 g/dL (12.0-16.0); Immature Granulocytes Abs Auto 0.03 10^3/uL (0.00-0.03); Immature Granulocytes Pct Auto 0.3 % (0.0-0.5); Lymphocytes Absolute Auto 2.6 10^3/uL (1.2-3.8); Mean Corpuscular HGB Conc 34.6 g/dL (29.9-35.2); Mean Corpuscular Hemoglobin 32.3 pg (26.7-34.0); Mean Corpuscular Volume 93.4 fL (81.0-99.0); Platelet Count 271 10^3/uL (150-450); Red Blood Count 4.67 10^6/uL (4.20-5.40); White Blood Count 9.3 10^3/uL (4.0-11.0)
[2025-01-23 12:47] LABS: Alanine Aminotransferase 22 U/L (14-59); Albumin Globulin Ratio 1.1; Albumin Level 4.0 g/dL (3.4-5.0); Alkaline Phosphatase 47 U/L (46-116); Anion Gap 11.6; Aspartate Amino Transferase 17 U/L (15-37); Blood Urea Nitrogen 9.0 mg/dL (7.0-18.0); Calcium 9.2 mg/dL (8.5-10.1); Carbon Dioxide 27.6 mmol/L (21.0-32.0); Chloride 104 mmol/L (98-107); Cholesterol 282 mg/dL (<=200); Estimated GFR (African America >60 (>=60 mL/min/1.73m^2); Estimated GFR (Non-African Ame >60 (>=60 mL/min/1.73m^2); Free T3 1.54 pg/mL (2.18-3.98); Globulin 3.6 g/dL; Glucose 85 mg/dL (74-106); HDL Cholesterol 118 mg/dL (40-60); Potassium 4.2 mmol/L (3.5-5.1); Sodium 139 mmol/L (136-145); Thyroid Stimulating Hormone 3.350 uIU/mL (0.358-3.740); Total Protein 7.6 g/dL (6.4-8.2); Triglycerides 47 mg/dL (<=150); VLDL CHOLESTEROL 9.4 mg/dL
== END 2025-01-23 11:36 | disposition home or self-care (01) ==
LOC: LAB 11:36
PROVIDERS: PCP Family Medicine; Visit Provider Family Medicine
DX: Z00.00 Encounter for general adult medical examination without abnormal findings (principal)
CPT/HCPCS: 36415; 80053; 80061; 82306; 83036; 84436; 84443; 84481; 85025

== ENCOUNTER 2025-03-06 11:34 | Emergency (ER) | payer MEDICAID, SELFPAY ==
[2025-03-06 11:40] VITALS: BP 121/99; PULSE 88; TEMP 37.1; O2SAT 100; BMI 29.2
--- NOTE | 2025-03-06 11:54 | XR_ITS ---
The [address] [address] Patient Name: KVNG KAUFFMAN MRN: [id number] date: 1980 Sex: F Assigned Patient Location: ER Current Patient Location: ED.MAIN Accession/Order Number: [id number] Exam Date: 03/06/2025 12:15 Report Date: 03/06/2025 13:09 At the request of: SALINAS VELAZQUEZ MD Procedure: XR ankle RT min 3V Left hip 2 views of one view pelvis, right ankle 3 views Reason for exam: Twisted ankle last night. Fall. COMPARISON: None. FINDINGS: Left hip/pelvis: IUD is in place. Phleboliths are seen within the pelvis. Joint spaces of the hips appear maintained with minimal degenerative change. No acute bony process. Right ankle: Soft tissue swelling is present. Mildly displaced fracture involving the distal fibula. There appears to be additional fracture involving the anterior aspect of the distal tibia best seen on the lateral view. Ankle mortise appears intact. Plantar spurring. XR/XR ankle RT min 3V IMPRESSION: Mildly displaced fracture involving the distal fibula with soft tissue swelling. There appears to be additional fracture involving the anterior aspect of the distal tibia best seen on the lateral view. No acute process involving the left hip or pelvis. Impression dictated by: James Adam Jr., D.O. 03/06/2025 1:09 PM Dictation Location: [place] [address] Electronically authenticated by: [id number] Y Date: 03/06/2025 13:09
--- NOTE | 2025-03-06 11:54 | XR_ITS ---
The [address] [address] Patient Name: KVNG KAUFFMAN MRN: [id number] date: 1980 Sex: F Assigned Patient Location: ER Current Patient Location: ED.MAIN Accession/Order Number: [id number] Exam Date: 03/06/2025 12:15 Report Date: 03/06/2025 13:09 At the request of: SALINAS VELAZQUEZ MD Procedure: XR ankle RT min 3V Left hip 2 views of one view pelvis, right ankle 3 views Reason for exam: Twisted ankle last night. Fall. COMPARISON: None. FINDINGS: Left hip/pelvis: IUD is in place. Phleboliths are seen within the pelvis. Joint spaces of the hips appear maintained with minimal degenerative change. No acute bony process. Right ankle: Soft tissue swelling is present. Mildly displaced fracture involving the distal fibula. There appears to be additional fracture involving the anterior aspect of the distal tibia best seen on the lateral view. Ankle mortise appears intact. Plantar spurring. XR/XR hip LT 2V w/ pelvis IMPRESSION: Mildly displaced fracture involving the distal fibula with soft tissue swelling. There appears to be additional fracture involving the anterior aspect of the distal tibia best seen on the lateral view. No acute process involving the left hip or pelvis. Impression dictated by: James Adam Jr., D.O. 03/06/2025 1:09 PM Dictation Location: [place] [address] Electronically authenticated by: [id number] Y Date: 03/06/2025 13:09
--- NOTE | 2025-03-06 11:55 | ED_ITS ---
HPI HPI - General Adult General Chief complaint: Extremity Injury, Lower Stated complaint: LOWER EXTREMITY INJURY Time Seen by Provider: 03/06/25 11:50 Source: patient Mode of arrival: Wheelchair Limitations: no limitations History of Present Illness HPI narrative: 45-year-old female presents to the emergency department for right ankle and left buttock pain. She was at home yesterday and she twisted her ankle and she fell injuring the lateral malleolus and she landed on her left buttock. She points only to the buttock area to indicate the pain on the left side, she does not have pain over the greater trochanter region. She points to the lateral malleolus for her right ankle. She did not hit her head and no other injury was sustained. The pain is moderate to severe. Related Data Home Medications ?Medication ?Instructions ?Recorded ?Confirmed levothyroxine 175 mcg tablet mcg 03/06/25 Previous Rx's ?Medication ?Instructions ?Recorded acetaminophen 300 mg-codeine 30 mg 1 tab PO Q6H PRN pa in 5 days #20 03/06/25 tablet tabs ibuprofen 800 mg tablet 800 mg PO Q8H PRN pain #20 t abs 03/06/25 Allergies Allergy/AdvReac Type Severity Reaction Status Date / Time No Known Drug Allergies Allergy Verified 03/06/25 11:40 Opioid HPI Opioid Management Most Recent Opioid Data: Last Pain Scale 8 Today, 11:40 Review of Systems ROS Narrative A ten point review of systems is negative except as noted above. PFSH PFSH Social History Little interest or pleasure in doing things: not at all Feeling down, depressed, or hopeless: not at all Exam Narrative Exam Narrative: Nurses note and vital signs reviewed General:The patient appears uncomfortable. Skin:Warm, dry, no pallor noted.There is no rash noted. Head:Normocephalic, atraumatic Eye: Normal conjunctiva, no drainage Ears, Nose, Mouth, and Throat: oral mucosa is moist. Nares patent. Cardiovascular:Regular Rate and Rhythm Respiratory:Patient is in no distress, no accessory muscle use, lungs are clear to auscultation, no wheezing, rales or rhonchi Back:non-tender GI: Soft and nontender Musculoskeletal: Oozing and swelling is present at the right lateral malleolus. The foot itself is nontender including the fifth metatarsal area. Right knee nontender. She has bruising on the left buttock. No tenderness over the greater trochanter region of her hip and the hip has good range of motion. Neurological: Awake and alert Psychiatric:Cooperative Constitutional Vital Signs, click to edit/add: Last Vital Signs Temp 98.8 F 03/06/25 11:40 Pulse 78 03/06/25 13:20 Resp 16 03/06/25 13:20 BP 141/99 H 03/06/25 13:20 Pulse Ox 98 03/06/25 13:20 O2 Del Method Room Air 03/06/25 13:20 Course Vital Signs Vital signs: Vital Signs Temperature 98.8 F 03/06/25 11:40 Pulse Rate 88 03/06/25 11:40 Respiratory Rate 18 03/06/25 11:40 Blood Pressure 121/99 H 03/06/25 11:40 Pulse Oximetry 100 03/06/25 11:40 Oxygen Delivery Method Room Air 03/06/25 11:40 Temperature 98.8 F 03/06/25 11:40 Pulse Rate 78 03/06/25 13:20 Respiratory Rate 16 03/06/25 13:20 Blood Pressure 141/99 H 03/06/25 13:20 Pulse Oximetry 98 03/06/25 13:20 Oxygen Delivery Method Room Air 03/06/25 13:20 Medical Decision Making MDM Narrative Medical decision making narrative: The patient has a right ankle fracture which is mildly displaced and the possible need for surgery was discussed with the patient. She has crutches at home that she can utilize and a short leg splint was applied. She was prescribed ibuprofen and Tylenol 3 and referred to podiatry for appropriate follow-up. Treatment diagnosis and follow-up were discussed with the patient. Differential Diagnosis Differential Diagnosis: Sprain, fracture, hematoma Imaging Data Right ankle, left hip and pelvis: Radiologist's impression: ITS Impressions Ankle X-Ray 03/06/25 11:54 IMPRESSION: Mildly displaced fracture involving the distal fibula with soft tissue swelling. There appears to be additional fracture involving the anterior aspect of the distal tibia best seen on the lateral view. No acute process involving the left hip or pelvis. Impression dictated by: James Adam Jr., D.O. 03/06/2025 1:09 PM Dictation Location: [place] [address] Electronically authenticated by: [id number] Y Date: 03/06/2025 13:09 Hip/Pelvis X-Ray 03/06/25 11:54 IMPRESSION: Mildly displaced fracture involving the distal fibula with soft tissue swelling. There appears to be additional fracture involving the anterior aspect of the distal tibia best seen on the lateral view. No acute process involving the left hip or pelvis. Impression dictated by: James Adam Jr., D.O. 03/06/2025 1:09 PM Dictation Location: [place] [address] Electronically authenticated by: [id number] Y Date: 03/06/2025 13:09 Discharge Plan Discharge Chief Complaint: Extremity Injury, Lower Clinical Impression: Ankle fracture, right, Hematoma of left buttock Patient Disposition: Home, Self-Care Time of Disposition Decision: 13:23 Condition: Good Mode of Transportation: Private Vehicle Prescriptions / Home Meds: New acetaminophen-codeine 300-30 mg tablet 1 tab PO Q6H PRN (Reason: pain) 5 Days Qty: 20 0RF ibuprofen 800 mg tablet 800 mg PO Q8H PRN (Reason: pain) Qty: 20 0RF No Action levothyroxine 175 mcg tablet Print Language: Maldivian Instructions: Ankle Fracture (ED) Referrals: Anton Lin MD [Primary Care Provider, Family Practice] - 1 week Alfredito Ruiz DPM [Physician, Podiatry] - As soon as possible
--- OUTSIDE RECORDS SUMMARY | 2025-03-06 13:05 | XMS_ITS | Clinical Summary ---
Author Organization [facility] Address [address] [place] [address] Care Team Providers Care Warp Trucker Name Role Phone Unavailable Primary Care Provider Unavailabl e Social History Tobacco UseTypesPacks/DayYears UsedDateSmoking Tobacco: Never Assessed CommentsUnknownSex and Gender InformationValueDate RecordedSex Assigned at Not on fileLegal EcsDcpilm81/15/2023 11:47 PM EDTGender IdentityNot on file Sexual OrientationNot on file Last Filed Vital Signs Vital SignReadingTime TakenCommentsBlood Trndzsew717/8608/04/2022 12:00 PM EDT Pulse--Temperature--Respiratory Rate--Oxygen Saturation--Inhaled Oxygen Concentration--Sfbhgk39.4 kg (183 lb 12.8 oz)08/04/2022 12:00 PM TUSIxzqis137.6 cm (5' 4 )08/04/2022 12:00 PM EDTBody Mass Index31.55008/04/2022 12:00 PM EDT Plan of Treatment Not on file
--- OUTSIDE RECORDS SUMMARY | 2025-03-06 13:13 | XMS_ITS | CCD ---
Author Organization [facility] Care Team Providers Care Senior Product Manager Name Role Phone DR ASTRID LARSON Primary [...] PATRICK Consulting Unavailable Problems Active Problems Problem ClassificationProblemDateDocumented DateEpisodic/ChronicDisorders of lipid metabolism (4 sources)Hyperlipidemia, unspecified; Translations: [HYPERLIPIDEMIA UNSPECIFIED]Onset: 53-86-7428OwevtosEvawijkuhhqgg and screening for infectious disease (2 sources)Encounter for screening for infections with a predominantly sexual mode of transmission; Translations: [Encounter for screening for human papillomavirus (HPV)]Onset: 46-38-0988NlobcexhNmrxiwaugkt deficiencies (1 source)Vitamin D deficiency, unspecified; Translations: [VITAMIN D DEFICIENCY UNSPECIFIED]Onset: 05-99-1249ZegwcpdKmdwp female genital disorders (1 source)Other specified noninflammatory disorders of vagina; Translations: [OTH SPEC NONINFLAMMATORY D/O VAGINA]Onset: 39-18-3555NrffawobKmduf screening for suspected conditions (not mental disorders or infectious disease) (4 sources)Encounter for screening for malignant neoplasm of cervix; Translations: [ENC SCREENING MALIG NEOPLASM CERV]Onset: 57-26-2437Ylvgucys Past or Other Problems Problem ClassificationProblemDateDocumented DateEpisodic/ChronicDiabetes mellitus without complication (1 source)Hyperglycemia, unspecified; Translations: [HYPERGLYCEMIA UNSPECIFIED] Onset: 55-88-4721WzqcwtnoPpgwfvxquwl; intervertebral disc disorders; other back problems (4 sources)Radiculopathy, lumbar region; Translations: [RADICULOPATHY LUMBAR REGION]Onset: 19-56-0008Dyfxiydv Results Test NameValueInterpretationReference RangeFacilityPAP [facility] [place] 2: 30 to 65on 06-23-2022..NormalMercy Health Perrysburg HospitalComment on above:Result Comment: Performed at: WBPerformed By: #### [id number] #### [facility] [address] [address] [address] Jaki MyersAge Gdln ACOG Fvwqqiy41-17TwxkioUkhChillicothe HospitalComment on above:Performed By: #### [id number] #### [facility] [address] [place] [address] Dr. Jaki MyersDIAGNOSIS:CommentSelect Medical [facility] Clinic Rehabilitation Hospital, AvonComcorewell health big rapids hospital on above: Result Comment: NEGATIVE FOR INTRAEPITHELIAL LESION OR MALIGNANCY. Performed at: WBPerformed By: #### [id number] #### [facility] [address] [place] [address] Dr. Jaki Chadwick AptimaNegativeNormalNegativeMercy Health Perrysburg HospitalComcorewell health big rapids hospital on above:Result Comment: This nucleic acid amplification test detects fourteen high-risk HPV types (16,18,31,33,35,39,45,51,52,56,58,59,66,68) without differentiation. Performed at: =GPerformed By: #### [id number] #### [facility] [address] [place] [address] Dr. Jaki Chadwick Genotype ReflexCommentNoChillicothe HospitalComcorewell health big rapids hospital on above:Result Comment: Criteria not met, HPV Genotype not performed. Performed at: WBPerformed By: #### [id number] #### [facility] [address] [place] [address] Dr. Jaki MyersMethodology:CommentSelect Medical Cleveland Clinic Rehabilitation Hospital, AvonComcorewell health big rapids hospital on above: Result Comment: This liquid based ThinPrep(R) pap test was screened with the use of an image guided system. Performed at: WBPerformed By: #### [id number] #### [facility] [address] [place] [address] Dr. Jaki MyersNote:CommentFlower Hospital on above:Result Comment: The Pap smear is a screening test designed to aid in the detection of premalignant and malignant conditions of the uterine cervix. It is not a diagnostic procedure and should not be used as the sole means of detecting cervical cancer. Both false-positive and false-negative reports do occur. . Performed at: WBPerformed By: #### [id number] #### [facility] [address] [place] [address] Dr. Jaki MyersPerformed by:CommentNoParkview Health Montpelier Hospital on above: Result Comment: [place], Mortgage Underwriter (ASCP) Performed at: WBPerformed By: #### [id number] #### [facility] [address] [place] [address] Dr. Jaki MyersSpecimen adequacy:CommentFlower Hospital on above:Result Comment: Satisfactory for evaluation. Endocervical and/or squamous metaplastic cells (endocervical component) are present. Performed at: WBPerformed By: #### [id number] #### [facility] [address] [place] [address] Dr. Jaki MyersCHLAMYDIA/GONOCOCCUS CASE (SWAB/URINE/PAPon 02-34-6081Gzdoscaad trachomatis, NAANegativeNormalNegativeMercy Health Perrysburg HospitalComment on above: Performed By: #### CT/NGNA #### [facility] [address] [place] [address] Dr. Jaki MyersNeisseria gonorrhoeae, NAANegativeNormalNegativeThe Flower HospitalComment on above:Performed By: #### CT/NGNA #### [facility] [address] [place] [address] Dr. Jaki MyersVAGINITIS/VAGINOSIS DNA PROBEon 57-19-7713Rabfftr speciesNegative NormalNegativeMercy Health Perrysburg HospitalComment on above:Performed By: #### VAGINT #### [facility] [address] [place] [address] Dr. Jaki Nava vaginalisPositiveAbnormalNegativeThe Flower HospitalComment on above:Performed By: #### VAGINT #### [facility] [address] [address] [address] Jaki Colmenareshomlizette vaginalisNegativeNormalNegativeThe [facility] Comment on above:Performed By: #### VAGINT #### [facility] [address] [address] [address] Jaki MyersT4 LABCORPon 52-17-3237H7 [Mass/Vol]7.6 ug/dLNormal4.5-12.0The [facility]lower HospitalComment on above:Performed By: #### T4LC #### [facility] [address] [address] [address] Jaki Villar D 25-OH LABCORPon 52-73-9449Wygxlzy D, 25-Eqwvver98.0 ng/mL Critically low30.0-100.0The Flower HospitalComment on above:Result Comment: Vitamin D deficiency has been defined by the [employer] and an Endocrine Society practice guideline as a level of serum 25-OH vitamin D less than 20 ng/mL (1,2). The Endocrine Society went on to further define vitamin D insufficiency as a level between 21 and 29 ng/mL (2). 1. IOM ([employer]). 2010. Dietary reference intakes for calcium and D. [place]: The National Academies Press. 2. Noreen MF, Bobby NC, Nael ESPINOZA, et al. Evaluation, treatment, and prevention of vitamin D deficiency: an Endocrine Society clinical practice guideline. JCEM. 2010; 96(7):1911-30.Performed By: #### VITADLC #### [facility] [address] [address] [address] Jaki MyersCBC AUTO DIFFon 29-27-0094VYCZ #0.1 103/ulNormal0.0-0.1The [facility]lower HospitalComment on above:Performed By: #### CBC ####[facility] [address] [address]Dr.Yilan ChangBasophils/100 WBC (Bld)0.9 %Normal0.2-2.0The [facility] HospitalComment on above:Performed By: #### CBC ####[facility] [address] [place], [place] [address]Dr.Lizbethlan ChangEO #0.4 103/ulNormal0.0-0.7The [facility] HospitalComment on above:Performed By: #### CBC ####[facility] [address] [place], [place] [address]Dr.Jaki ChangEosinophils/100 WBC (Bld)4.3 %Normal 0.9-7.0The [facility] HospitalComment on above:Performed By: #### CBC ####[facility] [address] [place], [place] [address]Dr.Lizbethiker Myers Erythrocyte distribution width (RBC) [Ratio]12.9 %Ipzmec46.0-15.0The [facility] HospitalComment on above:Performed By: #### CBC ####[facility] [address] [place], [place] [address]Dr.Jaki ChangHematocrit (Bld) [Volume fraction]42.4 %Zssamt46.0-48.0The [facility] HospitalComment on above:Performed By: #### CBC ####[facility] [address]na[address] [place], [place] [address]Dr.Jaki ChangHemoglobin (Bld) [Mass/Vol]14.1 g/dL Vysddl41.0-16.0The [facility] HospitalComment on above:Performed By: #### CBC ####[facility] Gtf[address] [place], [place] [address]Dr. Lizbethlan ChangIG #0.03 10e3/ulNormal0.00-0.03The [facility] HospitalComment on above: Performed By: #### CBC ####[facility] Ikguilpydv[address] [place], [place] [address]Dr.Lizbethlan ChangIG %0.4 %Normal0.0-0.5The [facility] HospitalComment on above:Performed By: #### CBC ####[facility] [address] [address]Dr.Jaki MyersLYMPH #2.4 103/ulNormal1.2-3.8The [facility] HospitalComment on above:Performed By: #### CBC ####[facility] [address] [address]Dr. Jaki MyersLymphocytes/100 WBC (Bld)28.8 %Xtlzlq39.5-60.0[facility] Comment on above:Performed By: #### CBC ####[facility] [address] [address]Dr.Jaki MyersMANUAL DIFF REQNONormalThe [facility]lower HospitalComment on above:Performed By: #### CBC ####[facility] [address] [place], [place] [address]Dr.Jaki MyersMCH (RBC) [Entitic mass]31.9 wtStzsdc56.7-34.0The [facility] HospitalComment on above: Performed By: #### CBC ####[facility] [address] [place], [place] [address]Dr.Jaki MyersMCHC (RBC) [Mass/Vol]33.3 g/dLNormal 29.9-35.2Mer[facility] Perrysburg HospitalComment on above:Performed By: #### CBC ####[facility] [address] [place], [place] [address]Dr. Jaki MyersMCV (RBC) [Entitic vol]95.9 oPIpiroe43.0-99.0[facility] Comment on above:Performed By: #### CBC ####[facility] [address] [address]Dr.Jaki MyersMONO #0.9 103/ulCritically high0.3-0.8The [facility] HospitalComment on above:Performed By: #### CBC ####[facility] [address] [place], [place] [address]Dr. Jaki ChangMonocytes/100 WBC (Bld)10.4 %Normal1.7-12.0[facility] Comment on above:Performed By: #### CBC ####[facility] [address] [address]Dr.Jaki MyersNEUT #4.7 103/ulNormal1.4-6.5 The [facility] HospitalComment on above:Performed By: #### CBC ####[facility] [address] [address]Dr.Jaki Myers Neutrophils/100 WBC (Bld)55.2 %Xtvjwh12.0-75.0The [facility] HospitalComment on above:Performed By: #### CBC ####[facility] [address] [address]Dr.Jaki MyersPlatelet mean volume (Bld) [Entitic vol] 10.7 fLNormal9.5-13.5The [facility] HospitalComment on above:Performed By: #### CBC ####[facility] [address] [address]Dr. Jaki MyersPLT257 103/eaYyzmjw466-226Ayx [facility] HospitalComment on above: Performed By: #### CBC ####[facility] [address] [address]Dr.Jaki MyersRBC4.42 106/ulNormal4.20-5.40The [facility] HospitalComment on above:Performed By: #### CBC ####[facility] [address] [address]Dr.Jaki MyersWBC8.5 103/ul Normal4.0-11.0The [facility] HospitalComcorewell health big rapids hospital on above:Performed By: #### CBC ####[facility] [address] [address]Dr. Jaki MyersFREE T3on 31-33-5575EMUY T32.22 pg/mlLNormal2.18-3.98The [facility] on above:Performed By: #### FT3, TSH, CMP, LIPID #### [facility] [address] [address] [address] Jaik MyersGLYCOHEMOGLOBIN A1Con 09-34-7230ARN RECOMMENDATIONSEE BELOWNormal The Broadway HospitalComment on above:Result Comment: ADA RECOMMENDED LIMIT 4.0 - 6.0 ADA THERAPEUTIC TARGET < 7.0 ACTION SUGGESTED > 7.0Performed By: #### A1C ####[facility] [address] [address]Dr. Jaki MyersGlucose [Mass/Vol]85 mg/dLNoChillicothe HospitalComment on above:Performed By: #### A1C ####[facility] [address] [address]Dr.Yilan MyersHbA1c (Bld) [Mass fraction]4.6 %Normal 4.5-6.2[facility] HospitalComment on above:Performed By: #### A1C ####[facility] [address] [address]Dr.Yilan MyersLIPID PROFILEon 96-51-1656JXYE-HDL RATIO NORMSEE [facility] Comment on above:Result Comment: 3.3 - 4.4 LOW RISK 4.4 - 7.1 AVERAGE RISK 7.1 - 11.0 MODERATE RISK >11.0 HIGH RISKPerformed By: #### FT3, TSH, CMP, LIPID #### [facility] [address] [place] [address] Dr. Jaki Greeneesterol [Mass/Vol]242 mg/dLCritically high<=200The [facility] HospitalComcorewell health big rapids hospital on above:Performed By: #### FT3, TSH, CMP, LIPID #### [facility] [address] [address] [address] Jaki Greeneesterol in HDL [Mass/Vol]89 mg/dLCritically bumd82-68Rsm [facility] HospitalComcorewell health big rap[facility] hospital on above:Performed By: #### FT3, TSH, CMP, LIPID #### [facility] [address] [address] [address] Jaki Greeneesterol in LDL [Mass/Vol]145.2 mg/dLSelect Medical Cleveland Clinic Rehabilitation Hospital, AvonComment on above:Performed By: #### FT3, TSH, CMP, LIPID #### [facility] [address] [address] [address] Jaki MyersCholesterol.total/Cholesterol in HDL [Mass ratio]2.7 {ratio} NormalThe Flower HospitalComment on above:Performed By: #### FT3, TSH, CMP, LIPID #### [facility] [address] [address] [address] Jaki Holt NORMAL> or = 60 mg/dl - LOW CARDIOVASCULAR RISK <40 mg/dl - HIGH CARDIOVASCULAR RISKSelect Medical Cleveland Clinic Rehabilitation Hospital, AvonComment on above:Performed By: #### FT3, TSH, CMP, LIPID #### [facility] [address] [address] [address] Jaki MyersLDL CALC NORMALSEE BELOWSelect Medical Cleveland Clinic Rehabilitation Hospital, AvonComment on above:Result Comment: <100 mg/dl OPTIMAL 100 - 129 mg/dl NEAR OR ABOVE OPTIMAL 130 - 159 mg/dl BORDERLINE HIGH 160 - 189 mg/dl HIGH >190 mg/dl VERY HIGH Performed By: #### FT3, TSH, CMP, LIPID #### [facility] [address] [place] [address] Dr. Jaki MyersTriglyceride [Mass/Vol]39 mg/dLNormal<=150The [facility] Comment on above:Performed By: #### FT3, TSH, CMP, LIPID #### [facility] [address] [place] [address] Dr. Jaki MyersVLDL CALC7.8 mg/dLNoChillicothe HospitalComment on above: Performed By: #### FT3, TSH, CMP, LIPID #### [facility] [address] [place] [address] Dr. Jaki MyersPROF 14(COMP METB)on 19-45-9913Mhfwxxa [Mass/Vol]3.6 g/dLNormal 3.4-5.0The [facility] HospitalComment on above:Performed By: #### FT3, TSH, CMP, LIPID #### [facility] [address] [place] [address] Dr. Jaki MyersAlbumin/Globulin [Mass ratio]1.1 {ratio}NormalThe Christina HospitalComment on above:Performed By: #### FT3, TSH, CMP, LIPID #### [facility] [address] [place] [address] Dr. Jaki Turner [Catalytic activity/Vol]51 U/MOhpeqp15-402Ylx [facility] HospitalComment on above:Performed By: #### FT3, TSH, CMP, LIPID #### [facility] [address] [place] [address] Dr. Jaki James [Catalytic activity/Vol]24 U/SJkosxz74-80Gfl [facility] HospitalComment on above:Performed By: #### FT3, TSH, CMP, LIPID #### [facility] [address] [place] [address] Dr. Jaki Hawkins gap [Moles/Vol]12.2 mmol/LNormalMercy Health Perrysburg Hospital Comment on above:Performed By: #### FT3, TSH, CMP, LIPID #### [facility] [address] [place] [address] Dr. Jaki Turcios [Catalytic activity/Vol]19 U/ISecekl40-99Rkc [facility] HospitalComment on above:Performed By: #### FT3, TSH, CMP, LIPID #### [facility] [address] [place] [address] Dr. Jaki MyersBilirubin [Mass/Vol]0.6 mg/dLNormal0.2-1.0[facility] Comment on above:Performed By: #### FT3, TSH, CMP, LIPID #### [facility] [address] [place] [address] Dr. Jaki MyersCalcium [Mass/Vol]8.8 mg/dLNormal8.5-10.1[facility] Comment on above:Performed By: #### FT3, TSH, CMP, LIPID #### [facility] [address] [place] [address] Dr. Jaki MyersChloride [Moles/Vol]103 mmol/KHovyzc42-537ThbMercy Health Perrysburg Hospital Comment on above:Performed By: #### FT3, TSH, CMP, LIPID #### [facility] [address] [address] [address] Jaki MyersCO2 [Moles/Vol]27.7 mmol/OVylplx92.0-32.0[facility] Comment on above:Performed By: #### FT3, TSH, CMP, LIPID #### [facility] [address] [address] [address] Jaki MyersCreatinine [Mass/Vol]0.62 mg/dLNormal0.55-1.02The [facility] HospitalComment on above:Performed By: #### FT3, TSH, CMP, LIPID #### [facility] [address] [address] [address] Jaki MyersGFR-AF [place] ISLANDER>60Normal>=60The [facility] HospitalComment on above:Performed By: #### FT3, TSH, CMP, LIPID #### [facility] [address] [place] [address] Dr. Jaki MyersGFR-NON AF [place]LANDER>60Normal>=60The [facility] HospitalComment on above:Performed By: #### FT3, TSH, CMP, LIPID #### [facility] [address] [place] [address] Dr. Jaki MyersGlobulin (S) [Mass/Vol]3.3 g/dLNormalThe [facility] HospitalComment on above:Performed By: #### FT3, TSH, CMP, LIPID #### [facility] [address] [address] [address] Jaki MyersGlucose [Mass/Vol]87 mg/yCCpaigp04-139Her [facility] Comment on above:Performed By: #### FT3, TSH, CMP, LIPID #### [facility] [address] [address] [address] Jaki MyersPotassium [Moles/Vol]3.9 mmol/LNormal3.5-5.1[facility] Comment on above:Performed By: #### FT3, TSH, CMP, LIPID #### [facility] [address] [address] [address] Jaki MyersProtein [Mass/Vol]6.9 g/dLNormal6.4-8.2[facility] Comment on above:Performed By: #### FT3, TSH, CMP, LIPID #### [facility] [address] [address] [address] Jaki MyersSodium [Moles/Vol]139 mmol/DYduvcb420-406Fim [facility] Comment on above:Performed By: #### FT3, TSH, CMP, LIPID #### [facility] [address] [address] [address] Jaki MyersUrea nitrogen [Mass/Vol]11.0 mg/dLNormal7.0-18.0The [facility] HospitalComment on above:Performed By: #### FT3, TSH, CMP, LIPID #### [facility] [address] [address] [address] Jaki Martin nitrogen/Creatinine [Mass ratio]17.7 mg/mgNoChillicothe HospitalComment on above:Performed By: #### FT3, TSH, CMP, LIPID #### [facility] [address] [place] [address] Dr. Jaki Marks 05-14-0543RUO4.338 uIU/mLCritically low0.358-3.740The [facility] HospitalComment on above:Performed By: #### FT3, TSH, CMP, LIPID #### [facility] [address] [place] [address] Dr. Jaki MyersXR LSPINE MIN 4 VIEWSon 05-02-3656UX LSPINE MIN 4 VIEWS EXAMINATION: XR LSPINE [...] authenticated by: FRANCISCO JAVIER PATRICK Date: 2021-10-29 07:49[facility] Encounters Encounter DateEncounter TypeCare ProviderFacilityStart: 06-16-2022 End: 40-70-8325ivyewykpmlJK ASTRID HOYFacility:H3Cplls: 01-06-2022 End: 97-28-0386uqkozofxhrBL ASTRID HOYFacility:J0Ffoqu: 10-28-2021 End: 65-92-4445gijgzpzpmqVY ASTRID HOYFacility:H1 Payers DatePayer CategoryPayerPolicy [id number] 1980Unknown [id number] Summary Purpose Family History No Family History Records Found Advance Directives No Advanced Directives Records Found Additional Source Comments INFORMATION SOURCE (unrecogn ized section and content) DATE CREATED AUTHOR 06/23/2022 [facility] FOR RECORDS PERTAINING TO PATIENTS WHO [...] BE BASED ON THE PRIMARY CLINICAL RECORDS. [facility] [employer] [facility]. provides no warranty or guarantee of the accuracy or completeness of information in this document.
[2025-03-06 13:20] VITALS: BP 141/99; PULSE 78; O2SAT 98
== END 2025-03-06 13:42 | disposition home or self-care (01) ==
PROVIDERS: Emergency Provider Emergency Medicine; PCP Family Medicine
DX: S82.831A Other fracture of upper and lower end of right fibula, initial encounter for closed fracture (principal); S82.301A Unspecified fracture of lower end of right tibia, initial encounter for closed fracture; X50.1XXA Overexertion from prolonged static or awkward postures, initial encounter; S30.0XXA Contusion of lower back and pelvis, initial encounter; W18.39XA Other fall on same level, initial encounter
CPT/HCPCS: 29515; 73502; 73610; 99283

== ENCOUNTER 2025-03-22 08:36 | Outpatient (OUT) | payer MEDICAID, SELFPAY ==
--- OUTSIDE RECORDS SUMMARY | 2023-09-21 08:00 | XMS_ITS ---
Author Organization [facility] Address [address] [place] [address] Care Team Providers Care Sorting Cows Worker Name Role Phone Dr. James Munguia Primary Care Provider [phone] Audra Villaseñor Unavailable [phone] REASON FOR VISIT DEBRIDEMENT FULL MOUTH WITH ORAQIX Encounters Encounter Location Date Provider Diagnosis [facility] [address] [place] [address] 09/21/2023 Audra Villaseñor Plan Of Treatment Next Appt Details Provider Name:Maryam Hope , 06/12/2025 02:15:00 PM, [address], [place], [address], Progress Notes * KAYLA KAUFFMANENMA:1980 (45 yo F)Acc No.[id number]:09/21/2023 Patient:?KVNG KAUFFMAN :?Audra YoanhaleyDOB:1980???Age:43 Y???Sex: FemaleDate:4Phone:[phone]:[address], [address], [place], [id number]:Dr. James Munguia Subjective: * Chief Complaints: * D EBRIDEMENT FULL MOUTH WITH ORAQIX * Electronic signature of Audra Villaseñor on 03/22/2025 at 08:39 AM ESTSign off status: Pending * Provider: Yanet Villaseñor Date: 0 09/21/2023 Generated for Printing/Faxing/eTransmitting on:?03/22/2025 08:39 AM EST
--- OUTSIDE RECORDS SUMMARY | 2023-12-07 08:00 | XMS_ITS ---
Author Organization [facility] es Address [address] [place] [address] Care Team Providers Care Regulatory And Compliance Technician Name Role Phone Dr. James Munguia Primary Care Provider Walter Holley Unavailable [phone] REASON FOR VISIT FILLING Encounters Encounter Location Date Provider Diagnosis [facility] [address] [place] [address] 12/07/2023 Walter Holley Plan Of Treatment Next Appt Details Provider Name:Maryam Hope , 06/12/2025 02:15:00 PM, [address], [place], [address], Progress Notes * EDGARD KAUFFMANMargo:1980 (45 yo F)Acc No.[id number]:12/07/2023 Patient:?KVNG KAUFFMAN :?Walter Parker DDSDOB:1980???Age:43 Y???Sex: FemaleDate:4Phone:[phone]:[address], [address], [place], [id number]:Dr. James Munguia Subjective: * Chief Complaints: * F ILLING * Electronic signature of Walter Holley on 03/22/2025 at 08:39 AM ESTSign off status: Pending * Provider: Meaghan Parker DDS Date: 0 12/07/2023 Generated for Printing/Faxing/eTransmitting on:?03/22/2025 08:39 AM EST
--- OUTSIDE RECORDS SUMMARY | 2023-12-21 08:00 | XMS_ITS ---
Author Organization [facility] es Address [address] [place] [address] Care Team Providers Care Director Of Field Sales Name Role Phone Dr. James Munguia Primary Care Provider [phone] Estelle Silverio Unavailable [phone] REASON FOR VISIT FILLING Encounters Encounter Location Date Provider Diagnosis [facility] [address] [place] [address] 12/21/2023 Estelle Silverio Plan Of Treatment Next Appt Details Provider Name:Maryam Hope , 06/12/2025 02:15:00 PM, [address], [place], [address], Progress Notes * EDGARD KAUFFMANMargo:1980 (45 yo F)Acc No.[id number]:12/21/2023 Patient:?KVNG KAUFFMAN :?Estelle SaridaDOB:1980???Age:43 Y???Sex: FemaleDate:4Phone:[phone]:[address], [address], [place], [id number]:Dr. James Munguia Subjective: * Chief Complaints: * F ILLING Billing Information: * Procedure Codes: * Electronic signature of Estelle Silverio DMD on 03/22/2025 at 08:39 AM ESTSign off status: Pending * Provider: Darek Silverio Date: 0 12/21/2023 Generated for Printing/Faxing/eTransmitting on:?03/22/2025 08:39 AM EST
--- OUTSIDE RECORDS SUMMARY | 2024-05-16 08:00 | XMS_ITS ---
Author Organization [facility] Address [address] [place] [address] Care Team Providers Care Music Video Producer Name Role Phone Dr. James Munguia Primary Care Provider Audra Villaseñor Unavailable [phone] REASON FOR VISIT 6 MONTH PROPH Encounters Encounter Location Date Provider Diagnosis [facility] [address] [place] [address] 05/16/2024 Audra Villaseñor Plan Of Treatment Next Appt Details Provider Name:Maryam Hope , 06/12/2025 02:15:00 PM, [address], [place], [address], Progress Notes * EDGARD KAUFFMANMargo:1980 (45 yo F)Acc No.[id number]:05/16/2024 Patient:?KVNG KAUFFMAN :?Audra VillaseñorDOB:1980???Age:44 Y???Sex: FemaleDate:05/16/2024Phone:[phone]:[address], [address], [place], [id number]:Dr. James Munguia Subjective: * Chief Complaints: * 6 MONTH PROPH * Electronic signature of Audra Villaseñor on 03/22/2025 at 08:38 AM ESTSign off status: Pending * Provider: Yanet Villaseñor Date: 0 05/16/2024 Generated for Printing/Faxing/eTransmitting on:?03/22/2025 08:38 AM EST
--- OUTSIDE RECORDS SUMMARY | 2025-03-08 04:30 | XMS_ITS ---
Author Organization [employer] Address [address] [address], [place] [address] Care Team Providers Care Full Service Vending Driver Name Role Phone Alfredito Ruiz Unavailable [phone] Allergies No Known Allergies REASON FOR VISIT Right Ankle Pain Medications Medication SIG (Take, Route, Frequency, Duration) Notes Start Date End Date Status Levothyroxine Sodium 175 MCG Tablet TAKE 1 TABLET BY MOUTH EVERY DAY IN THE MORNING ON AN EMPTY STOMACH Oral; Duration: 30 Days ActiveIbuprofen 800 MG TabletOral; Duration: 6 DaysActive Social History Section Notes: Patient is a current smoker. Social alcohol use. Encounters Encounter Location Date Provider Diagnosis [employer] [facility] [address] [address], [facility] [place] [address] 03/08/2025 Alfredito Ruiz Closed nondisplaced fracture of lateral malleolus of right fibula, initial encounter S82.64XA Assessments Encounter Date Diagnosis (ICD Code) Assessment Notes Treatment Notes Treatment Clinical Notes Section Notes 03/08/2025 Closed nondisplaced fracture of lateral malleolus of right fibula, initial encounter (ICD-10 - S82.64XA) Patient was seen and evaluated. Patient education provided and all questions answered to satisfaction. I recommended nonsurgical treatment at this time. Treatment advices included: - RICE therapy as well as shoe and activity modification - Remain nonweight bearing until f/u - Prescriptions for tall/standard height CAM boot which she will hopefully be transitioned to at next appointment. The CAM boot will provide stability thereby prevent fracture displacement and allow safe transition to partial protected weight bearing. The boot will allow her to advance activity safely and comfortably. She will require the boot for 3 months. - Prescription for knee scooter provided which she will require for 1-2 months pending fracture healing and progression on f/u xrays. - Imaging ordered: NWB ankle xrays ordered for next appointment Plan Of Treatment Treatment Notes Assessment Notes Closed nondisplaced fracture of lateral malleolus of right fibula, initial encounter Patient was seen and evaluated. Patient education provided and all questions answered to satisfaction. I recommended nonsurgical treatment at this time. Treatment advices included: - RICE therapy as well as shoe and activity modification - Remain nonweight bearing until f/u - Prescriptions for tall/standard height CAM boot which she will hopefully be transitioned to at next appointment. The CAM boot will provide stability thereby prevent fracture displacement and allow safe transition to partial protected weight bearing. The boot will allow her to advance activity safely and comfortably. She will require the boot for 3 months. - Prescription for knee scooter provided which she will require for 1-2 months pending fracture healing and progression on f/u xrays. - Imaging ordered: NWB ankle xrays ordered for next appointment Next Appt Details Follow Up: 2 Weeks, Reason: Provider Name:Alfredito carpenter, 03/22/2025 10:00:00 AM, [address] [facility] [address], [address], [place], [address], History and Physical Notes * HPI (History of Present Illness) CategorySub-CategoryDetailNotesCategory NotesSara is a 45yo female who had a slip and fall at home on 03/05/25. She went to the ER and xrays revealed a nondisplaced Harper B fibular malleolus fracture. She was splinted and place NWB with crutches. She has been able to go to work on restrictions/sedentary duty. Pain is controled with ibuprofen, ice and elevation. No other injuries occured. She has no history of DVT/PE. Examination CategorySub-CategoryDetailNotesCategory NotesGeneral Examination Skin: Skin intact. No sign of infection Neuro: LTS intact to plantar and dorsal foot. Negative tinel's sign Vasc: pedal pulses are palpable. No calf pain on squeeze. lateral ankle swelling and bruising. MSK: examination limited secondary to known fracture. Ankle and hindfoot are well aligned with no obvious deformity Progress Notes * Hina KAUFFMAN:1980 (45 yo F)Acc No.[id number]:03/08/2025 New Patient Patient: Marcellus Morton :?Alfredito Ruiz, DPMDOB:1980???Age:45 Y ???Sex:FemaleDate:03/08/2025Phone:Address:[address] [place] [address] [facility], [id number] Subjective: * Chief Complaints: * R ight Ankle Pain * HPI: ???Ankle:?Marcellus is a 45yo female who had a slip and fall at home on 03/05/25. She went to the ER and xrays revealed a nondisplaced Harper B fibular malleolus fracture. She was splinted and place NWB with crutches. She has been able to go to work on restrictions/sedentary duty. Pain is controled with ibuprofen, ice and elevation. No other injuries occured. She has no history of DVT/PE. * Medical History: Thyroid Issues Medical History Verified * Surgical History: Denies Past Surgical History.? * Social History: Social History Verified. ???Patient is a current smoker. Social alcohol use. * Medications: T akingIbuprofen 800 MG Tablet Oral Levothyroxine Sodium 175 MCG Tablet TAKE 1 TABLET BY MOUTH EVERY DAY IN THE MORNING ON AN EMPTY STOMACH Oral Medication List reviewed and reconciled with the patientTaking Ibuprofen 800 MG Tablet Oral Taking Levothyroxine Sodium 175 MCG Tablet TAKE 1 TABLET BY MOUTH EVERY DAY IN THE MORNING ON AN EMPTY STOMACH Oral Medication List reviewed and reconciled with the patient * Allergies: N .K.D.A.yesAllergies Verified. Objective: * Examination: ???General Examination: ???Skin: Skin intact. No sign of infection Neuro: LTS intact to plantar and dorsal foot. Negative tinel's sign Vasc: pedal pulses are palpable. No calf pain on squeeze. lateral ankle swelling and bruising. MSK: examination limited secondary to known fracture. Ankle and hindfoot are well aligned with no obvious deformity. Assessment: * Assessment: 1.?Closed nondisplaced fracture of lateral malleolus of right fibula, initial encounter - S82.64XA (Primary)??? Plan: * Treatment: Notes: Patient was seen and evaluated. Patient education provided and all questions answered to satisfaction. I recommended nonsurgical treatment at this time. Treatment advices included: - RICE therapy as well as shoe and activity modification - Remain nonweight bearing until f/u - Prescriptions for tall/standard height CAM boot which she will hopefully be transitioned to at next appointment. The CAM boot will provide stability thereby prevent fracture displacement and allow safe transition to partial protected weight bearing. The boot will allow her to advance activity safely and comfortably. She will require the boot for 3 months. - Prescription for knee scooter provided which she will require for 1-2 months pending fracture healing and progression on f/u xrays. - Imaging ordered: NWB ankle xrays ordered for next appointment?? * Follow Up: 2 Weeks Billing Information: * Visit Code: 47128 Office Visit, New Pt., Level 3. * Procedure Codes: * Sign off status: Completed true * Provider: Miller Ruiz DPM Date: Generated for Printing/Faxing/eTransmitting on:?03/22/2025 08:38 AM EST
--- OUTSIDE RECORDS SUMMARY | 2025-03-22 08:39 | XMS_ITS | Patient Health Record ---
Author Organization [employer] Address [address] [address], [place] [address] Care Team Providers Care Sound Technician Supervisor Name Role Phone Alfredito Ruiz Unavailable [phone] Allergies No Known Allergies Reason For Referral No Information Medications Medication SIG (Take, Route, Frequency, Duration) Notes Start Date End Date Status Levothyroxine Sodium 175 MCG Tablet TAKE 1 TABLET BY MOUTH EVERY DAY IN THE MORNING ON AN EMPTY STOMACH Oral; Duration: 30 Days ActiveIbuprofen 800 MG TabletOral; Duration: 6 DaysActive Social History Section Notes: Patient is a current smoker. Social alcohol use. Encounters Encounter Location Date Provider Diagnosis [facility] [address] [address], [facility] [place] [address] 03/08/2025 Alfredito Ruiz Closed nondisplaced fracture of [...] ordered for next appointment Plan Of Treatment Next Appt Details Provider Name:Alfredito ALMA Neo carpenter, 03/22/2025 10:00:00 AM, [address] [facility], [address], [address], [place], [address], Insurance Providers Payer Name Payer Address Payer Phone Subscriber Number Group Number Insured Name Patient Relationship to Insured Coverage Start Date Coverage End Date [facility] [address] [place] [address] [id number] Rodolfo Mcdowell - patient is the insured Medical (General) History Medical History History ICD Code Thyroid Issues
--- OUTSIDE RECORDS SUMMARY | 2025-03-22 08:39 | XMS_ITS | Patient Health Record ---
Author Organization [employer] [facility] Address [address] [place] [address] Care Team Providers Care Chief Sales Officer Name Role Phone Dr. James Munguia Primary Care Provider [phone] Audra Villaseñor Unavailable [phone] Reason For Referral No Information Plan Of Treatment Next Appt Details Provider Name:Maryam Hope , 06/12/2025 02:15:00 PM, [address], [place], [address], Insurance Providers Payer Name Payer Address Payer Phone Subscriber Number Group Number Insured Name Patient Relationship to Insured Coverage Start Date Coverage End Date [employer]-termed 06/08/22 [address] [place] [phone] [id number] Salvador KAUFFMAN - patient [id number] MedicaidPO [address] [place] [id number], ANDREASelf - patient is the zeffefk9106/09/2022zMEDICAID [facility] after [employer]- termed 06/08/22[address] [place] [id number] Salvador KAUFFMAN - patient is the [id number] [facility] [place] BCBSP[address] [place] [id number], ANDREASelf - patient is the mpfeete1306/09/2022zDENTAL DQ [employer]-termed 06/08/22 [address] [place] [id number], ANDREASelf - patient is the [id number] MEDICAID [facility] after [employer] 06/08/22[address] [place] [phone] [id number], ANDREASelf - patient is the fziriae6411/06/2021 3Dental [place] DQ Terminated 05/08/24[address] [place] [id number], ANDREASelf - patient is the xnboray8906/09/2022ental Wrap [facility] [place] BCBS Termed [address] [place] [id number], ANDREASelf - patient is the aejblxb0106/09/2022
--- OUTSIDE RECORDS SUMMARY | 2025-03-22 08:39 | XMS_ITS | Clinical Summary ---
Author Organization [facility] Address [address] [place] [address] Care Team Providers Care Lead Database Administrator Name Role Phone Unavailable Primary Care Provider Unavailabl e Social History Tobacco UseTypesPacks/DayYears UsedDateSmoking Tobacco: Never Assessed CommentsUnknownSex and Gender InformationValueDate RecordedSex Assigned at Not on fileLegal MteLwjwok91/15/2023 11:47 PM EDTGender IdentityNot on file Sexual OrientationNot on file Last Filed Vital Signs Vital SignReadingTime TakenCommentsBlood Hkfhlqyo467/8608/04/2022 12:00 PM EDT Pulse--Temperature--Respiratory Rate--Oxygen Saturation--Inhaled Oxygen Concentration--Ujxvmq75.4 kg (183 lb 12.8 oz)08/04/2022 12:00 PM OHCGnprhw756.6 cm (5' 4 )08/04/2022 12:00 PM EDTBody Mass Index31.55008/04/2022 12:00 PM EDT Plan of Treatment Not on file
--- OUTSIDE RECORDS SUMMARY | 2025-03-22 08:40 | XMS_ITS | Patient Health Record ---
Author Organization The [facility] in [place] Address [address] [place] [address] Care Team Providers Care Web Site Specialist Name Role Phone Delia Canelo Primary Care Provider Nicky Murguia Unavailable [phone] Allergies No Known Allergies Results Component Value Reference Range Notes FREE T3 Reviewed date:01/23/2025 12:56:04 PM Interpretation: Performing Lab: Notes/Report: [facility] , Free T3 1.54 2.18-3.98 pg/mL Performing Lab:see noteML - [facility] LBGLYCOHEMOGLOBIN A1C Reviewed date:01/23/2025 12:47:23 PM Interpretation: Performing Lab: Notes/Report: [facility] ,Glycohemoglobin A1C4.44.5-6.2 % ADA RECOMMENDED LIMIT 4.0 - 6.0 ADA THERAPEUTIC TARGET < 7.0 ACTION SUGGESTED > 7.0 Estimated Average Cirhpqg22Hyzwowkjxl Lab:see noteML - [facility] LB LIPID PROFILE Reviewed date:01/23/2025 12:56:04 PM Interpretation: Performing Lab: Notes/Report: [facility] ,Coqufznbtlpjc17<=150 mg/rPJaodpkjevob643<=200 mg/dLHDL Fhraatybhlj86066-94 mg/dL > or =60 mg/dl - LOW CARDIOVASCULAR RISK <40 mg/dl - HIGH CARDIOVASCULAR RISK LDL Cholesterol Wvmjpynrsf269.0 <100 mg/dl OPTIMAL 100-129 mg/dl NEAR OR ABOVE OPTIMAL 130-159 mg/dl BORDERLINE HIGH 160-189 mg/dl HIGH >190 mg/dl VERY HIGH VLDL CHOLESTEROL9.4Chol HDL Ratio2.4 3.3 - 4.4 LOW RISK 4.4 - 7.1 AVERAGE RISK 7.1 - 11.0 MODERATE RISK >11.0 HIGH RISK Performing Lab:see noteML - [facility] LBT4 Reviewed date:01/23/2025 12:56:04 PM Interpretation: Performing Lab: Notes/Report: [facility] ,T4 Thyroxine6.304.80-13.90 ug/dLPerforming Lab:see noteML - [facility] LBTSH Reviewed date:01/23/2025 12:56:04 PM Interpretation: Performing Lab: Notes/Report: [facility] ,Thyroid Stimulating Hormone3.3500.358-3.740 uIU/mLPerforming Lab:see noteML - [facility] LBVITAMIN D 25 [place] Reviewed date:01/23/2025 01:07:21 PM Interpretation: Performing Lab: Notes/Report: [facility] ,Vitamin D25.1 <20 ng/mL Vit D deficient 20-<30 ng/mL Vit D insufficient 30-100 ng/mL Vit D sufficient >100 ng/mL Potential Toxicity Performing Lab:see noteML - [facility] LBPROF 14(COMP METB) Reviewed date:01/23/2025 12:56:04 PM Interpretation: Performing Lab: Notes/Report: [facility] ,Txdhau622821-041 mmol/LPotassium4.23.5-5.1 mmol/IOdiiyewb33368-526 mmol/LCarbon Ahadwcl16.621.0-32.0 mmol/LAnion Gap11.6Kjxxura2855-875 mg/dLBlood Urea Nitrogen 9.07.0-18.0 mg/dLCreatinine0.550.55-1.02 mg/dLEstimated GFR ( Monika>60 >=60 mL/min/1.73m 2Estimated GFR (Non- Elida>60>=60 mL/min/1.73m 2BUN Creatinine Ratio16.9Qqvislw7.28.5-10.1 mg/dLBilirubin Total0.60.2-1.0 mg/dL Aspartate Amino Nhtxncyjaif7401-80 U/LAlanine Ddwsmastidebllcz3014-44 U/L Alkaline Wfavmuztito1589-858 U/LTotal Protein7.66.4-8.2 g/dLAlbumin Level4.03.4- 5.0 g/dLGlobulin3.6Albumin Globulin Ratio1.1Performing Lab:see noteML - [facility] LBCBC AUTO DIFF Reviewed date:01/23/2025 12:47:23 PM Interpretation: Performing Lab: Notes/Report: [facility] ,White Blood Count9.34.0-11.0 10 3/uLRed Blood Count4.674.20-5.40 10 6/uL Dzevbyuwtd27.112.0-16.0 g/fDUkwzfnwprh84.636.0-48.0 %Mean Corpuscular Zgqghx97.4 81.0-99.0 fLMean Corpuscular Yjbwpyzpfv11.326.7-34.0 pgMean Corpuscular HGB Conc 34.629.9-35.2 g/dLRed Cell Distribution Width12.811.0-15.0 %Platelet Oqnyc042 150-450 10 3/uLMean Platelet Lwsmep22.59.5-13.5 fLNeutrophils Percent Auto57.1 43.0-75.0 %Lymphocytes Percent Auto27.920.5-60.0 %Monocytes Percent Auto9.71.7- 12.0 %Eosinophils Percent Auto3.90.9-7.0 %Basophils Percent Auto1.10.2-2.0 % Immature Granulocytes Pct Auto0.30.0-0.5 %Neutrophils Absolute Auto5.31.4-6.5 10 3/uLLymphocytes Absolute Auto2.61.2-3.8 10 3/uLMonocytes Absolute Auto0.90.3-0.8 10 3/uLEosinophils Absolute Auto0.40.0-0.7 10 3/uLBasophils Absolute Auto0.10.0- 0.1 10 3/uLImmature Granulocytes Abs Auto0.030.00-0.03 10 3/uLPerforming Lab:see noteML - [facility] LBXR hip LT 2V w/ pelvis Reviewed date:03/06/2025 03:20:19 PM Interpretation: Performing Lab: Notes/Report: Source Facility: [facility]-[address] [place] [address] [address] XRay Report Signed Patient: MARCELLUS KAUFFMAN MR#: [id number] : 1980 Acct:[id number] Age/Sex: 45 / F ADM Date: 03/06/25 Loc: ER Attending Dr: Ordering Physician: Salinas Velazquez M.D. Date of Service: 03/06/25 Procedure(s): XR hip LT 2V w/ pelvis Accession Number(s): [id number] cc: Anton Lin M.D.; Salinas Velazquez M.D. The [address] [address] Patient Name: MARCELLUS KAUFFMAN MRN: [id number] date: 1980 Sex: F Assigned Patient Location: ER Current Patient Location: ED.MAIN Accession/Order Number: [id number] Exam Date: 03/06/2025 12:15 Report Date: 03/06/2025 13:09 At the request of: SALINAS VELAZQUEZ MD Procedure: XR ankle RT min 3V Left hip 2 views of one view pelvis, right ankle 3 views Reason for exam: Twisted ankle last night. Fall. COMPARISON: None. FINDINGS: Left hip/pelvis: IUD is in place. Phleboliths are seen within the pelvis. Joint spaces of the hips appear maintained with minimal degenerative change. No acute bony process. Right ankle: Soft tissue swelling is present. Mildly displaced fracture involving the distal fibula. There appears to be additional fracture involving the anterior aspect of the distal tibia best seen on the lateral view. Ankle mortise appears intact. Plantar spurring. XR/XR hip LT 2V w/ pelvis IMPRESSION: Mildly displaced fracture involving the distal fibula with soft tissue swelling. There appears to be additional fracture involving the anterior aspect of the distal tibia best seen on the lateral view. No acute process involving the left hip or pelvis. Impression dictated by: James Adam Jr., D.O. 03/06/2025 1:09 PM Dictation Location: [place] [address] Electronically authenticated by: [id number] Y Date: 03/06/2025 13:09 Dictated By: James Adam M.D. Signed By: 03/06/25 1312 DD/ 1309 TD/TT: Wool Buyer:XR ankle RT min 3V Reviewed date:03/06/2025 03:20:19 PM Interpretation: Performing Lab: Notes/Report: Source Facility: [place] [address] [place] [address] XRay Report Signed Patient: MARCELLUS KAUFFMAN MR#: [id number] : 1980 Acct:[id number] Age/Sex: 45 / F ADM Date: 03/06/25 Loc: ER Attending Dr: Ordering Physician: Salinas Velazquez M.D. Date of Service: 03/06/25 Procedure(s): XR ankle RT min 3V Accession Number(s): [id number] cc: Anton Lin M.D.; Salinas Velazquez M.D. [place] [address] Patient Name: MARCELLUS KAUFFMAN MRN: [id number] date: 1980 Sex: F Assigned Patient Location: ER Current Patient Location: ED.MAIN Accession/Order Number: [id number] Exam Date: 03/06/2025 12:15 Report Date: 03/06/2025 13:09 At the request of: SALINAS VELAZQUEZ MD Procedure: XR ankle RT min 3V Left hip 2 views of one view pelvis, right ankle 3 views Reason for exam: Twisted ankle last night. Fall. COMPARISON: None. FINDINGS: Left hip/pelvis: IUD is in place. Phleboliths are seen within the pelvis. Joint spaces of the hips appear maintained with minimal degenerative change. No acute bony process. Right ankle: Soft tissue swelling is present. Mildly displaced fracture involving the distal fibula. There appears to be additional fracture involving the anterior aspect of the distal tibia best seen on the lateral view. Ankle mortise appears intact. Plantar spurring. XR/XR ankle RT min 3V IMPRESSION: Mildly displaced fracture involving the distal fibula with soft tissue swelling. There appears to be additional fracture involving the anterior aspect of the distal tibia best seen on the lateral view. No acute process involving the left hip or pelvis. Impression dictated by: James Adam Jr., D.O. 03/06/2025 1:09 PM [facility]ictation [facility] Electronically authenticated by: [id number] Y Date: 03/06/2025 13:09 Dictated By: James Adam M.D. Signed By: 03/06/25 1312 DD/ 1309 TD/TT: Wool Buyer: Reason For Referral No Information Medications Medication SIG (Take, Route, Frequency, Duration) Notes Start Date End Date Status Levothyroxine Sodium 175 MCG take 1 tabl et by mouth every morning ON AN EMPTY STOMACH; Duration: 30 days ActiveCholecalciferol 50 MCG (1999)2 tablet Orally Once a dayActive Social History Tobacco Use: Social History Observation Description Date Details (start date - stop date) Current Smoker 05/09/1996 - NA Tobacco Use/Smoking Question Answer Notes Patient is a current smoker When did you start smoking?05/09/1996How often do you smoke cigarettes?every day How many cigarettes a day do you smoke?11-20Additional Findings: Tobacco User Moderate cigarette smoker (10-19 cigs/day)Alcohol Screen (Audit-C) Question Answer Notes Did you have a drink containing alcohol in the p ast year? Yes How many drinks did you have on a typical day when you were drinking in the past year?1 or 2 drinks (0 point)How often did you have a drink containing alcohol in the past year?Weekly (3 points)Peumfy5GgefpzufjrzcxdBcgvpvjxIWZUA-Z (Standard) Question Answer Notes Did you have a drink containing alcohol in the p ast year? Yes How often did you have six or more drinks on one occasion in the past year?4 or more times a week (4 points)How many drinks did you have on a typical day when you were drinking in the past year?5 or 6 drinks (2 points)How often did you have a drink containing alcohol in the past year?Daily or almost daily (4 points)Xllfqm56CpibybuqzcytitNnwvgabr Problems Problem Type SNOMED Code ICD Code Onset Dates Problem Status W/U Status Risk Notes Problem Hypothyroidism (53609880) Hypothyroidism, unspecified (E03.9) ActiveconfirmedProblemVitamin D deficiency (04469964)Vitamin D deficiency (E55.9)ActiveconfirmedProblemWell adult (461228772)Well adult (Z00.00)Active confirmedProblemPure hypercholesterolemia (471250689)Pure hypercholesterolemia (E78.00)ActiveconfirmedProblemPure hypercholesterolemia (295888518)Pure hypercholesterolemia, unspecified (E78.00)Activeconfirmed Vital Signs Temperature 99.0 degrees Fahrenheit 04/25/2024 Blood pressure wflcfqorz56 mm Hg01/23/20254409Lxggcz04 in01/23/2025lood pressure omauqdst127 mm Hg01/23/20256471Vqssdy964.2 lbs01/23/2025BMI26.98 kg/m201/23/2025 Encounters Encounter Location Date Provider Diagnosis [facility] [address] [place] [address] 01/09/2025 [place] [address] [place] [address] [facility]9 ; Hypothyroidism, unspecified E03.9 and Pure hypercholesterolemia E78.00[facility] [place] [address]/[facility] [place] [address]/[place] [address] [place] [address]/ Nicky [place]anes [address] [address] [place] [address]/Doug DeliaWell adult Z00.00 Assessments Encounter Date Diagnosis (ICD Code) Assessment Notes Treatment Notes Treatment Clinical Notes Section Notes 04/25/2024 Boil (ICD-10 - L02.92) boil drained in office on own, hui foul smelling discharge, mod amt continue warm compresses as needed, close monitoring if not improving, worsens, need fu 01/23/2025Well adult (ICD-10 - Z00.00)01/23/2025Vitamin D deficiency (ICD-10 - E55.9)01/23/2025Hypothyroidism, unspecified (ICD-10 - E03.9)01/23/2025Pure hypercholesterolemia (ICD-10 - E78.00) Plan Of Treatment Pending Test Test Name Order Date HEMOGLOBIN A1C (GLYCO) 01/23/2025 LIPID PANEL (CHOL/TRIG/HDL/LDL) 01/24/20 25 VITAMIN D, 25 LEVEL (TOTAL) 01/23/2025 T3 FREE, T4 FREE and TSH 02/17/2023 CBC AUTO DIFF 02/17/2023 GLYCOHEMOGLOBIN A1C 02/17/2023 LIPID PROFILE 01/23/2025 LIPID PROFILE 02/17/2023 PROF 14(COMP METB) 02/17/2023 THYROID PANEL (T4/TSH/FREE T3) 5 THYROID PANEL (T4/TSH/FREE T3) 5 MM screening mammo BI 01/23/2025 Vitamin D 01/23/2025 CMP (COMP MET ALTMAN) w/eGFR CKD-EPI 2024 CBC WITH DIFF 01/23/2025 Insurance Providers Payer Name Payer Address Payer Phone Subscriber Number Group Number Insured Name Patient Relationship to Insured Coverage Start Date Coverage End Date [employer] [place] [employer] [address] [address] [place] [address] [id number] Rodolfo Kauffman - patient is the insured Medical (General) History Medical History History ICD Code Cervical lymphadenopathy R59.0 Eczema L30.9 Hypothyroidism E03.9 Lumbar radiculopathy M54.16 Hypercholesterolemia E78.00 Suicidal ideations R45.851 Vitamin D deficiency E55.9 Surgical History Surgery Date(Month/Year) Cervical Leep Procedure 1999
--- NOTE | 2025-03-22 08:41 | XR_ITS ---
The [address] [address] Patient Name: KVNG KAUFFMAN MRN: [id number] date: 1980 Sex: F Assigned Patient Location: [facility] Current Patient Location: [facility] Accession/Order Number: [id number] Exam Date: 03/22/2025 08:45 Report Date: 03/22/2025 09:41 At the request of: NOEL ZAMBRANO DPKendal Procedure: XR ankle RT min 3V RIGHT ANKLE - 3 views CLINICAL DATA: Follow-up distal fibular fracture COMPARISON: 03/06/2025 AP, lateral and oblique views were obtained. There is artifact from a splint. There is redemonstration of an oblique, minimally displaced fracture at the distal fibular metaphysis, without change in alignment. Similar tiny bony density is again seen along the anterior tibial plafond and on the lateral view. There is no new fracture or dislocation. Tiny calcaneal spurs are seen. There are no significant soft tissue abnormalities. XR/XR ankle RT min 3V IMPRESSION: STABLE DISTAL FIBULAR FRACTURE. Impression dictated by: Feli Morales M.D. 03/22/2025 9:41 AM Dictation Location: [place] [address] Electronically authenticated by: [id number] Y Date: 03/22/2025 09:41
== END 2025-03-22 08:37 | disposition home or self-care (01) ==
LOC: RAD 08:37
PROVIDERS: PCP Family Medicine; Visit Provider Podiatrist Foot & Ankle Surgery
DX: S89.391D Other physeal fracture of lower end of right fibula, subsequent encounter for fracture with routine healing (principal)
CPT/HCPCS: 73610

== ENCOUNTER 2025-04-12 09:07 | Outpatient (OUT) | payer MEDICAID, SELFPAY ==
--- OUTSIDE RECORDS SUMMARY | 2025-04-12 09:11 | XMS_ITS | CCD ---
Author Organization [facility] Care Team Providers Care Beef Ribber Name Role Phone DR ASTRID LARSON Primary [...] metabolism (4 sources)Hyperlipidemia, unspecified; Translations: [HYPERLIPIDEMIA UNSPECIFIED]Onset: 60-79-6450MisyffeFgakmpxwyrwat and screening for infectious disease (2 sources)Encounter for screening for infections with a predominantly sexual mode of transmission; Translations: [Encounter for screening for human papillomavirus (HPV)]Onset: 15-58-1305SpchdjcjNdvccqgknou deficiencies (1 source)Vitamin D deficiency, unspecified; Translations: [VITAMIN D DEFICIENCY UNSPECIFIED]Onset: 93-35-0384YqxwsivViqls female genital disorders (1 source)Other specified noninflammatory disorders of vagina; Translations: [OTH SPEC NONINFLAMMATORY D/O VAGINA]Onset: 28-38-8478CcirfvopEfemc screening for suspected conditions (not mental disorders or infectious disease) (4 sources)Encounter for screening for malignant neoplasm of cervix; Translations: [ENC SCREENING MALIG NEOPLASM CERV]Onset: 83-08-8704Nojzthgw Past or Other Problems Problem ClassificationProblemDateDocumented DateEpisodic/ChronicDiabetes mellitus without complication (1 source)Hyperglycemia, unspecified; Translations: [HYPERGLYCEMIA UNSPECIFIED] Onset: 12-57-4161WwpamggkFkpkavopelk; intervertebral disc disorders; other back problems (4 sources)Radiculopathy, lumbar region; Translations: [RADICULOPATHY LUMBAR REGION]Onset: 00-96-0659Akmumwyy Results Test NameValueInterpretationReference RangeFacilityPAP [facility] PANEL 2: 30 to 65on 06-23-2022..NormalAultman HospitalComment on above:Result Comment: Performed at: WBPerformed By: #### [id number] #### [facility] [address] [address] [address] Jaki MyersAge Gdln ACOG Mqgaehl34-47WkstfmTzzMorrow County HospitalComment on above:Performed By: #### [id number] #### [facility] [address] [place] [address] Dr. Jaki MyersDIAGNOSIS:CommentMercy Health St. Vincent Medical CenterCommymichigan medical center alma on above: Result Comment: NEGATIVE FOR INTRAEPITHELIAL LESION OR MALIGNANCY. Performed at: WBPerformed By: #### [id number] #### [facility] [address] [place] [address] Dr. Jaki Chadwick AptimaNegativeNormalNegativeAultman HospitalCommymichigan medical center alma on above:Result Comment: This nucleic acid amplification test detects fourteen high-risk HPV types (16,18,31,33,35,39,45,51,52,56,58,59,66,68) without differentiation. Performed at: =GPerformed By: #### [id number] #### [facility] [address] [place] [address] Dr. Jaki Chadwick Genotype ReflexCommentNoMorrow County HospitalCommymichigan medical center alma on above:Result Comment: Criteria not met, HPV Genotype not performed. Performed at: WBPerformed By: #### [id number] #### [facility] [address] [place] [address] Dr. Jaki MyersMethodology:CommentMercy Health St. Vincent Medical CenterCommymichigan medical center alma on above: Result Comment: This liquid based ThinPrep(R) pap test was screened with the use of an image guided system. Performed at: WBPerformed By: #### [id number] #### [facility] [address] [place] [address] Dr. Jaki MyersNote:CommentMcCullough-Hyde Memorial Hospital on above:Result Comment: The Pap smear is a screening test designed to aid in the detection of premalignant and malignant conditions of the uterine cervix. It is not a diagnostic procedure and should not be used as the sole means of detecting cervical cancer. Both false-positive and false-negative reports do occur. . Performed at: WBPerformed By: #### [id number] #### [facility] [address] [place] [address] Dr. Jaki MyersPerformed by:CommentNoFort Hamilton Hospital on above: Result Comment: [place], Lens Generating Machine Tender (ASCP) Performed at: WBPerformed By: #### [id number] #### [facility] [address] [place] [address] Dr. Jaki MyersSpecimen adequacy:CommentMcCullough-Hyde Memorial Hospital on above:Result Comment: Satisfactory for evaluation. Endocervical and/or squamous metaplastic cells (endocervical component) are present. Performed at: WBPerformed By: #### [id number] #### [facility] [address] [place] [address] Dr. Jaki MyersCHLAMYDIA/GONOCOCCUS CASE (SWAB/URINE/PAPon 84-01-6667Gkxypadrw trachomatis, NAANegativeNormalNegativeAultman HospitalComment on above: Performed By: #### CT/NGNA #### [facility] [address] [place] [address] Dr. Jaki MyersNeisseria gonorrhoeae, NAANegativeNormalNegativeThe [facility] FoundationComment on above:Performed By: #### CT/NGNA #### [facility] [address] [place] [address] Dr. Jaki MyersVAGINITIS/VAGINOSIS DNA PROBEon 41-21-5576Njuwats speciesNegative NormalNegativeAultman HospitalComment on above:Performed By: #### VAGINT #### [facility] [address] [place] [address] Dr. Jaki Nava vaginalisPositiveAbnormalNegativeThe [facility] FoundationComment on above:Performed By: #### VAGINT #### [facility] [address] [address] [address] Jaki Colmenareshomlizette vaginalisNegativeNormalNegativeThe [facility] Comment on above:Performed By: #### VAGINT #### [facility] [address] [address] [address] Jaki MyersT4 LABCORPon 94-87-3995G9 [Mass/Vol]7.6 ug/dLNormal4.5-12.0The [facility] FoundationComment on above:Performed By: #### T4LC #### [facility] [address] [address] [address] Jaki Villar D 25-[place] LABCORPon 33-29-9615Vqthbad D, 25-Ptbdjor45.0 ng/mL Critically low30.0-100.0The [facility] FoundationComment on above:Result Comment: Vitamin D deficiency has been defined by the [place] of [employer] and an Endocrine Society practice guideline as a level of serum 25-OH vitamin D less than 20 ng/mL (1,2). The Endocrine Society went on to further define vitamin D insufficiency as a level between 21 and 29 ng/mL (2). 1. IOM ([place] of [employer]). 2010. Dietary reference intakes for calcium and D. [place]: The National Academies Press. 2. Noreen MF, Bobby [place], Nael ESPINOZA, et al. Evaluation, treatment, and prevention of vitamin D deficiency: an Endocrine Society clinical practice guideline. JCEM. 2010; 96(7):1911-30.Performed By: #### VITADLC #### [facility] [address] [address] [address] Jaki MyersCBC AUTO DIFFon 79-22-1097XIEN #0.1 103/ulNormal0.0-0.1The [facility] FoundationComment on above:Performed By: #### CBC ####[facility] [address] [address]Dr.Yilan ChangBasophils/100 WBC (Bld)0.9 %Normal0.2-2.0The [facility] FoundationComment on above:Performed By: #### CBC ####[facility] [address] [place], [place] [address]Dr.Lizbethlan ChangEO #0.4 103/ulNormal0.0-0.7The [facility] FoundationComment on above:Performed By: #### CBC ####[facility] [address] [place], [place] [address]Dr.Jaki ChangEosinophils/100 WBC (Bld)4.3 %Normal 0.9-7.0The [facility] FoundationComment on above:Performed By: #### CBC ####[facility] [address] [place], [place] [address]Dr.Lizbethiker Myers Erythrocyte distribution width (RBC) [Ratio]12.9 %Rymoty56.0-15.0The [facility] FoundationComment on above:Performed By: #### CBC ####[facility] [address] [place], [place] [address]Dr.Jaki ChangHematocrit (Bld) [Volume fraction]42.4 %Jdpmue84.0-48.0The [facility] FoundationComment on above:Performed By: #### CBC ####[facility] [address] [place], [place] [address]Dr.Jaki ChangHemoglobin (Bld) [Mass/Vol]14.1 g/dL Vmzplx78.0-16.0The [facility] FoundationComment on above:Performed By: #### CBC ####[facility] [address] [place], [place] [address]Dr. Lizbethlan ChangIG #0.03 10e3/ulNormal0.00-0.03The [facility] FoundationComment on above: Performed By: #### CBC ####[facility] [address] [place], [place] [address]Dr.Lizbethlan ChangIG %0.4 %Normal0.0-0.5The [facility] FoundationComment on above:Performed By: #### CBC ####[facility] [address] [address]Dr.Jaki MyersLYMPH #2.4 103/ulNormal1.2-3.8The [facility] FoundationComment on above:Performed By: #### CBC ####[facility] [address] [address]Dr. Jaki MyersLymphocytes/100 WBC (Bld)28.8 %Fhnaju53.5-60.0[facility] Comment on above:Performed By: #### CBC ####[facility] [address] [address]Dr.Jaki MyersMANUAL DIFF REQNONormalThe [facility] FoundationComment on above:Performed By: #### CBC ####[facility] [address] [place], [place] [address]Dr.Jaki MyersMCH (RBC) [Entitic mass]31.9 isRclbtb46.7-34.0The [facility] FoundationComment on above: Performed By: #### CBC ####[facility] [address] [place], [place] [address]Dr.Jaki MyersMCHC (RBC) [Mass/Vol]33.3 g/dLNormal 29.9-35.2Aultman HospitalComment on above:Performed By: #### CBC ####[facility] [address] [place], [place] [address]Dr. Jaki MyersMCV (RBC) [Entitic vol]95.9 cNAtgzkl68.0-99.0[facility] Comment on above:Performed By: #### CBC ####[facility] [address] [address]Dr.Jaki MyersMONO #0.9 103/ulCritically high0.3-0.8The [facility] FoundationComment on above:Performed By: #### CBC ####[facility] [address] [place], [place] [address]Dr. Jaki ChangMonocytes/100 WBC (Bld)10.4 %Normal1.7-12.0[facility] Comment on above:Performed By: #### CBC ####[facility] [address] [address]Dr.Jaki MyersNEUT #4.7 103/ulNormal1.4-6.5 The [facility] FoundationComment on above:Performed By: #### CBC ####[facility] [address] [address]Dr.Jaki Myers Neutrophils/100 WBC (Bld)55.2 %Kwtact83.0-75.0The [facility] FoundationComment on above:Performed By: #### CBC ####[facility] [address] [address]Dr.Jaki MyersPlatelet mean volume (Bld) [Entitic vol] 10.7 fLNormal9.5-13.5The [facility] FoundationComment on above:Performed By: #### CBC ####[facility] [address] [address]Dr. Jaki MyersPLT257 103/zsUtrjhn983-104Tej [facility] FoundationComment on above: Performed By: #### CBC ####[facility] [address] [address]Dr.Jaki MyersRBC4.42 106/ulNormal4.20-5.40The [facility] FoundationComment on above:Performed By: #### CBC ####[facility] [address] [address]Dr.Jaki MyersWBC8.5 103/ul Normal4.0-11.0The [facility] FoundationCommymichigan medical center alma on above:Performed By: #### CBC ####[facility] [address] [address]Dr. Jaki MyersFREE T3on 11-59-7091NVJQ T32.22 pg/mlLNormal2.18-3.98The [facility] on above:Performed By: #### FT3, TSH, CMP, LIPID #### [facility] [address] [address] [address] Jaki MyersGLYCOHEMOGLOBIN A1Con 74-95-9039WME RECOMMENDATIONSEE BELOWNormal The [facility]ovington HospitalComment on above:Result Comment: ADA RECOMMENDED LIMIT 4.0 - 6.0 ADA THERAPEUTIC TARGET < 7.0 ACTION SUGGESTED > 7.0Performed By: #### A1C ####[facility] [address] [address]Dr. Jaki MyersGlucose [Mass/Vol]85 mg/dLNoMorrow County HospitalComment on above:Performed By: #### A1C ####[facility] [address] [address]Dr.Yilan MyersHbA1c (Bld) [Mass fraction]4.6 %Normal 4.5-6.2Aultman HospitalComment on above:Performed By: #### A1C ####[facility] [address] [address]Dr.Yilan MyersLIPID PROFILEon 69-29-3802ZZNW-HDL RATIO NORMSEE [facility] Comment on above:Result Comment: 3.3 - 4.4 LOW RISK 4.4 - 7.1 AVERAGE RISK 7.1 - 11.0 MODERATE RISK >11.0 HIGH RISKPerformed By: #### FT3, TSH, CMP, LIPID #### [facility] [address] [place] [address] Dr. Jaki Greeneesterol [Mass/Vol]242 mg/dLCritically high<=200The [facility] FoundationCommymichigan medical center alma on above:Performed By: #### FT3, TSH, CMP, LIPID #### [facility] [address] [address] [address] Jaki Greeneesterol in HDL [Mass/Vol]89 mg/dLCritically mfcc69-62Zcy [facility] FoundationCommymichigan medical center alma on above:Performed By: #### FT3, TSH, CMP, LIPID #### [facility] [address] [address] [address] Jaki Greeneesterol in LDL [Mass/Vol]145.2 mg/dLMercy Health St. Vincent Medical CenterComment on above:Performed By: #### FT3, TSH, CMP, LIPID #### [facility] [address] [address] [address] Jaki MyersCholesterol.total/Cholesterol in HDL [Mass ratio]2.7 {ratio} NormalThe [facility] Clinic FoundationComment on above:Performed By: #### FT3, TSH, CMP, LIPID #### [facility] [address] [address] [address] Jaki Holt NORMAL> or = 60 mg/dl - LOW CARDIOVASCULAR RISK <40 mg/dl - HIGH CARDIOVASCULAR RISKMercy Health St. Vincent Medical CenterComment on above:Performed By: #### FT3, TSH, CMP, LIPID #### [facility] [address] [address] [address] Jaki MyersLDL CALC NORMALSEE BELOWMercy Health St. Vincent Medical CenterComment on above:Result Comment: <100 mg/dl OPTIMAL 100 - 129 mg/dl NEAR OR ABOVE OPTIMAL 130 - 159 mg/dl BORDERLINE HIGH 160 - 189 mg/dl HIGH >190 mg/dl VERY HIGH Performed By: #### FT3, TSH, CMP, LIPID #### [facility] [address] [place] [address] Dr. Jaki MyersTriglyceride [Mass/Vol]39 mg/dLNormal<=150The [facility] Comment on above:Performed By: #### FT3, TSH, CMP, LIPID #### [facility] [address] [place] [address] Dr. Jaki MyersVLDL CALC7.8 mg/dLNoMorrow County HospitalComment on above: Performed By: #### FT3, TSH, CMP, LIPID #### [facility] [address] [place] [address] Dr. Jaki MyersPROF 14(COMP METB)on 18-32-1457Bttnjzj [Mass/Vol]3.6 g/dLNormal 3.4-5.0The [facility] FoundationComment on above:Performed By: #### FT3, TSH, CMP, LIPID #### [facility] [address] [place] [address] Dr. Jaki MyersAlbumin/Globulin [Mass ratio]1.1 {ratio}NormalThe Christina HospitalComment on above:Performed By: #### FT3, TSH, CMP, LIPID #### [facility] [address] [place] [address] Dr. Jaki Turner [Catalytic activity/Vol]51 U/XMvzzbs13-197Llh [facility] FoundationComment on above:Performed By: #### FT3, TSH, CMP, LIPID #### [facility] [address] [place] [address] Dr. Jaki James [Catalytic activity/Vol]24 U/WFrzqxf37-09Ewp [facility] FoundationComment on above:Performed By: #### FT3, TSH, CMP, LIPID #### [facility] [address] [place] [address] Dr. Jaki Hawkins gap [Moles/Vol]12.2 mmol/LNormalAultman Hospital Comment on above:Performed By: #### FT3, TSH, CMP, LIPID #### [facility] [address] [place] [address] Dr. Jaki Turcios [Catalytic activity/Vol]19 U/AFqivaz94-90Npm [facility] FoundationComment on above:Performed By: #### FT3, TSH, CMP, LIPID #### [facility] [address] [place] [address] Dr. Jaki MyersBilirubin [Mass/Vol]0.6 mg/dLNormal0.2-1.0[facility] Comment on above:Performed By: #### FT3, TSH, CMP, LIPID #### [facility] [address] [place] [address] Dr. Jaki MyersCalcium [Mass/Vol]8.8 mg/dLNormal8.5-10.1[facility] Comment on above:Performed By: #### FT3, TSH, CMP, LIPID #### [facility] [address] [place] [address] Dr. Jaki MyersChloride [Moles/Vol]103 mmol/BIbpduu08-457YqlAultman Hospital Comment on above:Performed By: #### FT3, TSH, CMP, LIPID #### [facility] [address] [address] [address] Jaki MyersCO2 [Moles/Vol]27.7 mmol/MUtzpxu48.0-32.0The [facility] Comment on above:Performed By: #### FT3, TSH, CMP, LIPID #### [facility] [address] [address] [address] Jaki MyersCreatinine [Mass/Vol]0.62 mg/dLNormal0.55-1.02The [facility] FoundationComment on above:Performed By: #### FT3, TSH, CMP, LIPID #### [facility] [address] [address] [address] Jaki MyersGFR-AF COSTA RICAN>60Normal>=60The [facility] FoundationComment on above:Performed By: #### FT3, TSH, CMP, LIPID #### [facility] [address] [place] [address] Dr. Jaki MyersGFR-NON AF COSTA RICAN>60Normal>=60The [facility] FoundationComment on above:Performed By: #### FT3, TSH, CMP, LIPID #### [facility] [address] [place] [address] Dr. Jaki MyersGlobulin (S) [Mass/Vol]3.3 g/dLNormalThe [facility] FoundationComment on above:Performed By: #### FT3, TSH, CMP, LIPID #### [facility] [address] [address] [address] Jaki MyersGlucose [Mass/Vol]87 mg/dNTjukbv51-969Yrg [facility] Comment on above:Performed By: #### FT3, TSH, CMP, LIPID #### [facility] [address] [address] [address] Jaki MyersPotassium [Moles/Vol]3.9 mmol/LNormal3.5-5.1The [facility] Comment on above:Performed By: #### FT3, TSH, CMP, LIPID #### [facility] [address] [address] [address] Jaki MyersProtein [Mass/Vol]6.9 g/dLNormal6.4-8.2The [facility] Comment on above:Performed By: #### FT3, TSH, CMP, LIPID #### [facility] [address] [address] [address] Jaki MyersSodium [Moles/Vol]139 mmol/IKruqqs284-345Kbj [facility] Comment on above:Performed By: #### FT3, TSH, CMP, LIPID #### [facility] [address] [address] [address] Jaki MyersUrea nitrogen [Mass/Vol]11.0 mg/dLNormal7.0-18.0The [facility] FoundationComment on above:Performed By: #### FT3, TSH, CMP, LIPID #### [facility] [address] [address] [address] Jaki Martin nitrogen/Creatinine [Mass ratio]17.7 mg/mgNoMorrow County HospitalComment on above:Performed By: #### FT3, TSH, CMP, LIPID #### [facility] [address] [place] [address] Dr. Jaki Marks 60-54-2371UGR4.338 uIU/mLCritically low0.358-3.740The [facility] FoundationComment on above:Performed By: #### FT3, TSH, CMP, LIPID #### [facility] [address] [place] [address] Dr. Jaki MyersXR LSPINE MIN 4 VIEWSon 80-21-7117CX LSPINE MIN 4 VIEWS EXAMINATION: XR LSPINE [...] authenticated by: FRANCISCO JAVIER PATRICK Date: 2021-10-29 07:49[facility] Encounters Encounter DateEncounter TypeCare ProviderFacilityStart: 06-16-2022 End: 48-81-4246acdrlticlaWK ASTRID HOYFacility:C0Shtau: 01-06-2022 End: 94-57-2976maavoahgecGU ASTRID HOYFacility:R5Lvfzg: 10-28-2021 End: 57-48-0970ogbbijosdkIX ASTRID HOYFacility:H1 Payers DatePayer CategoryPayerPolicy [id number] 1980Unknown [id number] Summary Purpose Family History No Family History Records Found Advance Directives No Advanced Directives Records Found Additional Source Comments INFORMATION SOURCE (unrecogn ized section and content) DATE CREATED AUTHOR 06/23/2022 [facility] FOR RECORDS PERTAINING TO PATIENTS WHO ARE [...] BE BASED ON THE PRIMARY CLINICAL RECORDS. [facility] [facility]. provides no warranty or guarantee of the accuracy or completeness of information in this document.
--- NOTE | 2025-04-12 09:14 | XR_ITS ---
The [place] [id number] Patient Name: KVNG KAUFFMAN MRN: [id number] date: 1980 Sex: F Assigned Patient Location: RAD Current Patient Location: [facility] Accession/Order Number: [id number] Exam Date: 04/12/2025 09:20 Report Date: 04/12/2025 10:07 At the request of: NOEL ZAMBRANO DPKendal Procedure: XR ankle RT min 3V RIGHT ANKLE - 3 views CLINICAL HISTORY: Fracture COMPARISON: Right ankle 03/22/2025 FINDINGS: Soft tissue swelling is present. Distal fibular fracture is grossly unchanged alignment and healing. XR/XR ankle RT min 3V IMPRESSION: NO SIGNIFICANT CHANGE IN FRACTURE FINDINGS. Impression dictated by: James Adam Jr. DSaraOSara 04/12/2025 10:07 AM Dictation Location: [place] [address] Electronically authenticated by: [id number] Y Date: 04/12/2025 10:07
== END 2025-04-12 09:08 | disposition home or self-care (01) ==
LOC: RAD 09:08
PROVIDERS: PCP Family Medicine; Visit Provider Podiatrist Foot & Ankle Surgery
DX: S89.301D Unspecified physeal fracture of lower end of right fibula, subsequent encounter for fracture with routine healing (principal)
CPT/HCPCS: 73610